=== PATIENT | male | born 1965 | race American Indian/Alaskan Native ===

== ENCOUNTER 2019-02-19 22:48 | Inpatient (IN) | payer OTHER ==
[2019-02-19] MEDS ORDERED: SODIUM CHLORIDE 0.9% 1000 ML 1,000 ML IV ONE (22:59)
[2019-02-19] MEDS ORDERED: MAGNESIUM SULFATE 2 GM/50 ML BAG IV ONE (23:00)
--- NOTE | 2019-02-19 23:05 | Emergency Department Report ---
HPI - General Time Seen by Provider: 02/19/19 22:57 - HPI HPI: 53-year-old -[place] male presents to the emergency department via EMS from home with a complaint of some chest pain, palpitations, diaphoresis that started about 1-2 hours prior to arrival. EMS found the patient to have runs of V. tach and after calling into the emergency department the patient was given 15 0 mg of amiodarone. He denies any past medical history. He denies any tobacco or illicit drug use. The patient recently saw his PCP for some bronchitis type symptoms and was placed on prednisone and Tessalon Perles for his cough. No recent travel or sick contacts at home. ED Review of Systems ROS: Stated complaint: CHEST PAIN Other details as noted in HPI Comment: All other systems reviewed and negative Constitutional: diaphoresis. denies: fever Eyes: denies: eye pain, vision change ENT: denies: ear pain, throat pain Respiratory: shortness of breath. denies: cough Cardiovascular: chest pain, palpitations Gastrointestinal: denies: abdominal pain, vomiting Musculoskeletal: denies: back pain, arthralgia Neurological: denies: headache, weakness Physical Exam - Physical Exam General: GENERAL: The patient is well-developed well-nourished. HENT: Normocephalic. Atraumatic. Patient has moist mucous membranes. EYES: Extraocular motions are intact. NECK: Supple. Trachea is midline. CHEST/LUNGS: Clear to auscultation. There is no respiratory distress noted. HEART/CARDIOVASCULAR: Regular. There is severe tachycardia. There is no murmur. ABDOMEN: Abdomen is soft, nontender. Patient has normal bowel sounds. There is no abdominal distention. SKIN: Patient is slightly diaphoretic. NEURO: The patient is awake, alert, and oriented. The patient is cooperative. The patient has no focal neurologic deficits. Normal speech. MUSCULOSKELETAL: There is no tenderness or deformity. There is no limitation range of motion. There is no evidence of acute injury. ED Course - Consultations Consultation #1: I spoke with Dr. Tiwari at [facility] who listened to the case presentation and has given us permission to admit the patient to our hospital. 02/20/19 01:32 ED Medical Decision Making - Lab Data Result diagrams: 02/19/19 23:07 02/19/19 23:07 - EKG Data -: EKG Interpreted by Me - EKG Data When compared to previous EKG there are: previous EKG unavailable Interpretation: other (V tach rate of 166, LVH) - Radiology Data Radiology results: report reviewed, image reviewed interpreted by me: Chest x-ray does not show any acute process. There are no pleural effusions, obvious pneumonia and there is no pneumothorax. CTA CHEST WITH CONTRAST INDICATION / CLINICAL INFORMATION: CP, elevated dimer. TECHNIQUE: Axial CT images were obtained through the chest after injection of 100 MLO Omnipaque 350 IV contrast. 3 plane MIP and/or 3D reconstructions were produced. All CT scans at this location are performed using CT dose reduction for ALARA by means of automated exposure control. COMPARISON: None available. FINDINGS: PULMONARY ARTERIES: No pulmonary emboli. THORACIC AORTA: No significant abnormality. HEART: Heart is mildly enlarged. No pericardial effusion. CORONARY ARTERIES: No significant calcification. MEDIASTINUM / JAEL: No significant abnormality. PLEURA: Small bilateral effusions. No pneumothorax. LUNGS: Interstitial and airspace pulmonary edema with peribronchial cuffing. ADDITIONAL FINDINGS: None. UPPER ABDOMEN: Tiny nonobstructing stone in the right kidney. No hydronephrosis. SKELETAL STRUCTURES: No significant osseous abnormality. IMPRESSION: 1. No CT evidence for pulmonary embolism. 2. Interstitial and airspace pulmonary edema with small bilateral pleural effusions. - Medical Decision Making This patient came into the emergency department with the complaint of some chest pain and palpitations. He was found to be in V. tach by EMS and given 150 mg of amiodarone in route. Upon arrival to the emergency department the patient still appears in V. tach with a heart rate going between 180 and 200 bpm. He was started on an amiodarone drip. Most of the EKG appears to show monomorphic V. tach but there was one area that appeared polymorphic and therefore some magnesium was added. The patient was also given some IV fluid resuscitation. The amiodarone drip, or the magnesium, appeared to start working and the heart rate slowed down and the patient went into a sinus rhythm. Chest x-ray appeared mostly unremarkable but was read by radiology as showing some signs of interstitial edema. Patient's labs show an equivocal troponin, an elevated d- dimer level, some transaminitis and a BNP greater than 5000. CT angiography of the chest was done that does not show any pulmonary embolism but does show some interstitial and airspace pulmonary edema with small bilateral pleural effusions. The patient's blood pressure is normal but does not appear to be high enough to start diuresis. Cardiology has been contacted and consult. The patient will be admitted to the telemetry floor and was accepted for admission by the hospitalist, Dr. Coronel. - Differential Diagnosis V. tach, TN, PE, CHF Critical Care Time: Yes Critical care time in (mins) excluding proc time.: 31 Critical care attestation.: If time is entered above; I have spent that time in minutes in the direct care of this critically ill patient, excluding procedure time. Critical care time was spent on this patient and doing his initial evaluation, multiple re- evaluations, ordering and interpretation of labs and imaging, ordering of antiarrhythmic medications, discussions with the patient and his family, discussion with the [facility] physician. Critical Care Time: 31 minutes ED Disposition Clinical Impression: Ventricular tachycardia, New onset of congestive heart failure, Acute chest pain, Transaminitis Disposition: 09 OP ADMIT IP TO THIS HOSP Is pt being admited?: Yes Condition: Serious Instructions: Chest Pain (ED) Referrals: PRIMARY CAREMD [Primary Care Provider] - 3-5 Days Time of Disposition: 01:33
[2019-02-19] MEDS ORDERED: AMIODARONE 150 MG in DEXTROSE 5% IN WATER 97 ML IV ONE (23:14)
[2019-02-19] MEDS: AMIODARONE 900 MG in DEXTROSE 5% IN WATER 482 ML IV SCH (23:20)
[2019-02-19 23:21] LABS: Basophils # (Auto) 0.1 K/mm3 (0.0-0.1); Basophils % (Auto) 0.7 % (0.0-1.8); Eosinophils # (Auto) 0.1 K/mm3 (0.0-0.4); Eosinophils % (Auto) 0.9 % (0.0-4.3); Hematocrit 42.1 % (35.5-45.6); Hemoglobin 14.3 gm/dl (11.8-15.2); Lymphocytes # (Auto) 1.4 K/mm3 (1.2-5.4); Lymphocytes % (Auto) 11.6 % (13.4-35.0); Mean Corpuscular HGB Conc 34 % (32-34); Mean Corpuscular Volume 89 fl (84-94); Monocytes # (Auto) 0.6 K/mm3 (0.0-0.8); Platelet Count 241 K/mm3 (140-440); Red Blood Count 4.72 M/mm3 (3.65-5.03); Red Cell Distribution Width 13.7 % (13.2-15.2)
[2019-02-19 23:40] LABS: Albumin 3.6 g/dL (3.9-5); BUN/Creatinine Ratio 19; Blood Urea Nitrogen 23 mg/dL (9-20); Calcium 8.9 mg/dL (8.4-10.2); Hemolysis Index 184
--- NOTE | 2019-02-19 23:46 | XRay Report ---
CHEST 1 VIEW 02/19/2019 11:08 PM INDICATION / CLINICAL INFORMATION: Chest pain. COMPARISON: None available. FINDINGS: SUPPORT DEVICES: None. HEART / MEDIASTINUM: Heart is upper normal size for AP portable technique. LUNGS / PLEURA: Borderline interstitial edema and peribronchial cuffing. No airspace disease or pleur al effusion. No pneumothorax. ADDITIONAL FINDINGS: No significant additional findings. IMPRESSION: 1. Borderline interstitial edema. Signer Name: Danny Stewart MD Signed: 02/19/2019 11:41 PM Workstation Name: [id number]
[2019-02-20 00:12] LABS: Alanine Aminotransferase 113 units/L (7-56)
--- NOTE | 2019-02-20 01:18 | Cat Scan Report ---
CTA CHEST WITH CONTRAST INDICATION / CLINICAL INFORMATION: CP, elevated dimer. TECHNIQUE: Axial CT images were obtained through the chest after injection of 100 MLO Omnipaque 350 IV contrast. 3 plane MIP and/or 3D reconstructions were produced. All CT scans at this location are performed usi ng CT dose reduction for JUNRA by means of automated exposure control. COMPARISON: None available. FINDINGS: PULMONARY ARTERIES: No pulmonary emboli. THORACIC AORTA: No significant abnormality. HEART: Heart is mildly enlarged. No pericardial effusion. CORONARY ARTERIES: No significant calcification. MEDIASTINUM / JAEL: No significant abnormality. PLEURA: Small bilateral effusions. No pneumothorax. LUNGS: Interstitial and airspace pulmonary edema with peribronchial cuffing. ADDITIONAL FINDINGS: None. UPPER ABDOMEN: Tiny nonobstructing stone in the right kidney. No hydronephrosis. SKELETAL STRUCTURES: No significant osseous abnormality. IMPRESSION: 1. No CT evidence for pulmonary embolism. 2. Interstitial and airspace pulmonary edema with small bilateral pleural effusions. Signer Name: Danny Stewart MD Signed: 02/20/2019 1:13 AM Workstation Name: [id number]
[2019-02-20] MEDS ORDERED: FUROSEMIDE 20 MG/2 ML INJ IV ONE ×3 (02:17→03:30)
[2019-02-20] MEDS ORDERED: guaiFENesin/CODEINE 100-10MG ORAL LIQD 5 ML PO ONE (02:18)
[2019-02-20] MEDS ORDERED: methylPREDNISolone Sod Succinate 125 MG/2 ML INJ IV ONE (02:27)
--- NOTE | 2019-02-20 02:32 | History and Physical Report ---
History of Present Illness Date of examination: 02/20/19 History of present illness: 53-year-old man with no medical problems comes emergency room with complaints of chest pain that started tonight. Pain is in the center of his status Whitty described as a sharp pain, constant, intensity 7/10, no radiation. Identify e xacerbating symptoms. Admits to shortness of breath. He was brought to the emergency room where he found to be in V. tach with heart rate in the 200s, he was given magnesium, started on amiodarone drip. When I saw the patient she was short of breath, diaphoretic and vomiting rate in the 160s, crackles on physical exam. He was given IV Lasix, Solu-Medrol. I placed a call to Dr. Dumont who recommended the patient to be cardioverted. While her getting ready to cardioverted the patient, his heart rate went down to the 80s Review Of Systems: Constitutional: no weight loss, fever, chills Ears, eyes, nose, mouth and throat: no nasal congestion, no nasal discharge, no sinus pressure, blurry vision, diplopia Neck: No neck pain or rigidity. Cardiovascular:+ palpitations, chest pain Respiratory: + shortness of breath, cough productive of white phlegm Gastrointestinal: No hematochezia, abdominal pain Genitourinary : no dysuria, frequency Musculoskeletal: no muscle ache , joint pain Integumentary: no rash, no pruritis Neurological: no parathesias, focal weakness Endocrine: no cold or heat intolerance, no polyuria or polydipsia Hematologic/Lymphatic: no easy bruising, no easy bleeding, no gland swelling Allergic/Immunologic: no urticaria, no angioedema. PAST MEDICAL HISTORY:None PAST SURGICAL HISTORY: hernia FAMILY HISTORY:hypertension, diabetes SOCIAL HISTORY: Denies tobacco, drugs, alcohol Medications and Allergies Allergies Allergy/AdvReac Type Severity Reaction Status Date / Time No Known Allergies Allergy Unverified 02/19/19 22:57 Active Meds: Active Medications Amiodarone HCl 900 mg/ (Dextrose) 500 mls @ 33.333 mls/hr IV DIRECT ERNIE; Protocol Last Admin: 02/19/19 23:20 Dose: 1 mg/min, 33.333 mls/hr Documented by: Pseudoephedrine/Acetam/Chlorphenir (Robitussin Ac) 5 ml PO ONCE ONE Stop: 02/20/19 02:19 Exam - Physical Exam Narrative exam: General Apperance: The patient sitting in bed , short of breath HEENT: Normocephalic, atraumatic. Pupils equally round and reactive to light, extraocular movement intact, and no sclericterus or JVD or thyromegaly or nodule. Neck supple, no carotid bruit, mucous membranes moist, no exudate or erythema Heart: S1-S2, regular is rhythm Lungs: Crackles, decrease breath sounds bilaterally, breathing comfortable Abdomen: Positive bowel sounds, soft, nontender, nondistended, no organomegaly Extremities: No edema cyanosis clubbing Skin: no rash, nodule, warm and dry Neuro:CN 2 -12 intact, motor/sensory intact, speech is fluent - Constitutional Vitals: Temp Pulse Resp BP Pulse Ox 98.1 F 186 H 18 105/81 100 02/19/19 22:59 02/19/19 23:20 02/19/19 23:27 02/19/19 23:20 02/19/19 23:27 Results - Labs CBC & Chem 7: 02/19/19 23:07 02/19/19 23:07 Labs: Abnormal lab results 02/19/19 02/19/19 02/19/19 Range/Units 23:07 23:07 23:07 WBC 12.2 H (4.5-11.0) K/mm3 Lymph % (Auto) 11.6 L (13.4-35.0) % Seg Neutrophils % 81.8 H (40.0-70.0) % Seg Neutrophils # 10.0 H (1.8-7.7) K/mm3 D-Dimer 525.92 H (0-234) ng/mlDDU Potassium 5.1 H (3.6-5.0) mmol/L Carbon Dioxide 21 L (22-30) mmol/L BUN 23 H (9-20) mg/dL Glucose 137 H (75-100) mg/dL AST 121 H (5-40) units/L ALT 113 H (7-56) units/L NT-Pro-B Natriuret Pep (0-900) pg/mL Albumin 3.6 L (3.9-5) g/dL TSH (0.270-4.200) mlU/mL 02/19/19 02/19/19 Range/Units 23:07 23:07 WBC (4.5-11.0) K/mm3 Lymph % (Auto) (13.4-35.0) % Seg Neutrophils % (40.0-70.0) % Seg Neutrophils # (1.8-7.7) K/mm3 D-Dimer (0-234) ng/mlDDU Potassium (3.6-5.0) mmol/L Carbon Dioxide (22-30) mmol/L BUN (9-20) mg/dL Glucose (75-100) mg/dL AST (5-40) units/L ALT (7-56) units/L NT-Pro-B Natriuret Pep 5554 H (0-900) pg/mL Albumin (3.9-5) g/dL TSH 5.020 H (0.270-4.200) mlU/mL - Imaging and Cardiology EKG: image reviewed Chest x-ray: report reviewed CT scan - chest: report reviewed Assessment and Plan Assessment V. tach new-onset CHF, new onset secondary to V. tach Plan Admit to medicine Continue amiodarone drip Cardiac enzymes, echo, t4 For cardiology, case discussed with Dr. Ross. DVT prophylaxis Addendum Patient heart rate went back to 160s, became very diaphoretic, short of breath Was given a bolus of amiodarone drip and his heart rate went down to 80s I gave them an extra dose of 20 mg of Lasix as his blood pressure is in the low 120s Ernst was placed, is anxious appearing and not tolerating 50% Ventimask ABG was obtained, results reviewed, pH 7.1, he was placed on BiPAP Consult critical care, repeat EKGs were obtained and sent to cardiology DrLashell a lot to delay was updated on all events concerning the patient Discussed with family CC 120 minutes
[2019-02-20] MEDS ORDERED: ACETAMINOPHEN 325 MG TAB PO PRN (03:07)
[2019-02-20] MEDS ORDERED: ONDANSETRON 4 MG/2 ML INJ IV PRN (03:07)
[2019-02-20] MEDS ORDERED: AMIODARONE 150 MG/3 ML INJ IV ONE ×2 (03:18→03:29)
[2019-02-20] MEDS ORDERED: AMIODARONE 150 MG in DEXTROSE 5% IN WATER 100 ML IV ONE ×3 (03:18→03:26)
[2019-02-20] MEDS ORDERED: LORazepam 2 MG/ML VIAL IV ONE ×2 (03:36→04:35)
[2019-02-20] MEDS ORDERED: LORazepam 2 MG/ML VIAL ONE ×2 (03:36→05:27)
[2019-02-20] MEDS ORDERED: FUROSEMIDE 20 MG/2 ML INJ ONE (05:28)
[2019-02-20 07:23] LABS: Creatine Kinase MB 7.4 ng/mL (0.0-4.0)
[2019-02-20 07:48] LABS: Chol/HDL Ratio 3.04 %
--- NOTE | 2019-02-20 09:32 | Consultation ---
History of Present Illness Consult date: 02/20/19 Requesting physician: JULIA PANDA Consult reason: other (VT) History of present illness: The pt is a 53-year-old -[place] with no significant past medical history. He is previously unknown to our practice. He presented to the emergency department via EMS from home with a complaint of some chest pain, palpitations, diaphoresis that started about 1-2 hours prior to arrival (started around 8:30PM last night). EMS found the patient to have runs of V. tach and after calling into the emergency department the patient was given 150 mg of amiodarone. He denies any past medical history. He denies any tobacco or illicit drug use. The patient recently saw his PCP for some bronchitis type symptoms and was placed on prednisone and Tessalon Perles for his cough. 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 Following arrival to ED, pt had additional run of VT documented on 12-lead ECG. IV amio was continued and he converted back to NSR. He was noted to have increased work of breathing and increased coarse breath sounds in ED and was given IV lasix and placed on BiPAP. On evaluation, BiPAP was transitioned to nasal cannula. Pt appears comfortable, no apparent distress, no current cardiac complaints. He remains in NSR with freq PVCs, amio gtt infusing. Past History Past Medical History: No medical history Past Surgical History: hernia repair Medications and Allergies Allergies Allergy/AdvReac Type Severity Reaction Status Date / Time No Known Allergies Allergy Unverified 02/19/19 22:57 Active Meds: Active Medications Acetaminophen (Tylenol) 650 mg PO Q4H PRN PRN Reason: Pain MILD(1-3)/Fever >100.5/FINE Amiodarone HCl 900 mg/ (Dextrose) 500 mls @ 33.333 mls/hr IV DIRECT ERNIE; Protocol Last Titration: 02/20/19 07:34 Dose: 0.5 mg/min, 16.667 mls/hr Documented by: Sodium Chloride (Nacl 0.9% 500 Ml) 500 mls @ 50 mls/hr IV DIRECT ERNIE Stop: 02/20/19 19:59 Ondansetron HCl (Zofran) 4 mg IV Q8H PRN PRN Reason: Nausea And Vomiting Sodium Chloride (Sodium Chloride Flush Syringe 10 Ml) 10 ml IV BID ERNIE Sodium Chloride (Sodium Chloride Flush Syringe 10 Ml) 10 ml IV PRN PRN PRN Reason: LINE FLUSH Review of Systems Constitutional: no weight loss, no weight gain, no fever, no chills, no sweats Ears, nose, mouth and throat: no ear pain, no nose pain Cardiovascular: chest pain, palpitations, rapid/irregular heart beat, shortness of breath, no orthopnea, no edema, no syncope, no lightheadedness, no high blood pressure, no leg edema, no decreased exercise tolerance Respiratory: shortness of breath, no cough, no congestion, no wheezing, no pain on inspiration Gastrointestinal: no abdominal pain, no nausea, no vomiting, no diarrhea, no constipation, no change in bowel habits Genitourinary Male: no dysuria, no hematuria, no flank pain, no discharge, no urinary frequency, no urinary hesitancy Musculoskeletal: no neck stiffness, no neck pain, no shooting arm pain, no arm numbness/tingling, no low back pain, no shooting leg pain Integumentary: no rash, no pruritis, no redness, no sores, no wounds Neurological: no head injury, no paralysis, no weakness, no parathesias, no numbness, no tingling, no seizures, no syncope Psychiatric: no anxiety Endocrine: no cold intolerance, no heat intolerance Hematologic/Lymphatic: no easy bruising, no easy bleeding Allergic/Immunologic: no urticaria, no wheezing Physical Examination Vital Signs Pulse Resp Pulse Ox 85 15 100 02/19/19 19:54 02/19/19 19:54 02/19/19 19:54 General appearance: no acute distress HEENT: Positive: PERRL, Normocephaly, Mucus Membranes Moist Neck: Positive: neck supple, trachea midline Cardiac: Positive: Reg Rate and Rhythm, S1/S2 Lungs: Positive: Rales (bibasilar) Neuro: Positive: Grossly Intact Abdomen: Negative: Tender Skin: Negative: Rash Musculoskeletal: No Pain Extremities: Absent: edema Results 02/19/19 23:07 02/19/19 23:07 Cardiac Enzymes 02/19/19 02/20/19 Range/Units 23:07 06:44 AST 121 H (5-40) units/L CK-MB (CK-2) 7.4 H (0.0-4.0) ng/mL Lipids 02/20/19 Range/Units 06:44 Triglycerides 104 (2-149) mg/dL Cholesterol 225 H (50-199) mg/dL HDL Cholesterol 74 H (40-59) mg/dL Cholesterol/HDL Ratio 3.04 % CBC 02/19/19 Range/Units 23:07 WBC 12.2 H (4.5-11.0) K/mm3 RBC 4.72 (3.65-5.03) M/mm3 Hgb 14.3 (11.8-15.2) gm/dl Hct 42.1 (35.5-45.6) % Plt Count 241 (140-440) K/mm3 Lymph # 1.4 (1.2-5.4) K/mm3 [place] # 0.6 (0.0-0.8) K/mm3 Eos # 0.1 (0.0-0.4) K/mm3 Baso # 0.1 (0.0-0.1) K/mm3 Comprehensive Metabolic Panel 02/19/19 Range/Units 23:07 Sodium 137 (137-145) mmol/L Potassium 5.1 H (3.6-5.0) mmol/L Chloride 103.7 (98-107) mmol/L Carbon Dioxide 21 L (22-30) mmol/L BUN 23 H (9-20) mg/dL Creatinine 1.2 (0.8-1.5) mg/dL Glucose 137 H (75-100) mg/dL Calcium 8.9 (8.4-10.2) mg/dL AST 121 H (5-40) units/L ALT 113 H (7-56) units/L Alkaline Phosphatase 74 (35-129) units/L Total Protein 7.1 (6.3-8.2) g/dL Albumin 3.6 L (3.9-5) g/dL - Imaging and Cardiology Echo: pending EKG: report reviewed, image reviewed EKG interpretations - Telemetry EKG Rhythm: Sinus Rhythm - EKG Sinus rhythms and dysrhythmias: sinus rhythm Ventricular dysrhythmias: ventricular premature com Assessment and Plan Coronary angiography recommended to r/o ischemic event in setting of VT. Indications, potential risks and benefits of LHC reviewed with pt and he is agreeable to proceed. Await findings. Obtain echo. Further recs to follow per hospital course. The patient has been seen in conjunction with Dr. Alford who agrees with the assessment and plan of care. - Patient Problems (1) Ventricular tachycardia Current Visit: Yes Status: Acute (2) Acute heart failure Current Visit: Yes Status: Acute (3) Chest pain Current Visit: Yes Status: Acute
[2019-02-20] MEDS ORDERED: SODIUM CHLORIDE 0.9% 500 ML 500 ML IV SCH (10:00)
[2019-02-20] MEDS ORDERED: HEPARIN/NS 5000 UNIT/500ML 1,000 ML IR ONE ×2 (10:04→11:03)
[2019-02-20] MEDS ORDERED: HEPARIN 10,000 UNITS/10 ML VIAL ONE ×2 (10:04→11:03)
[2019-02-20] MEDS ORDERED: fentaNYL 100 MCG/2 ML INJ ONE ×2 (10:05→11:04)
[2019-02-20] MEDS ORDERED: NITROGLYCERIN SYRINGE 0 ML ONE ×2 (10:05→11:04)
[2019-02-20] MEDS ORDERED: LIDOCAINE (2%) 20 MG/1 ML VIAL 20 ML MDV INFILTRATI ONE ×2 (10:05→11:04)
[2019-02-20] MEDS ORDERED: VERAPAMIL 5 MG/2 ML INJ ONE ×2 (10:05→11:04)
[2019-02-20] MEDS ORDERED: MIDAZOLAM 2 MG/2 ML INJ ONE ×2 (10:05→11:03)
[2019-02-20] MEDS ORDERED: SODIUM CHLORIDE 0.9% 500 ML 0 ML ONE (10:22)
[2019-02-20 10:48] LABS: INR 1.13 (0.87-1.13); Partial Thromboplastin Time 28.5 Sec. (24.2-36.6)
[2019-02-20] MEDS ORDERED: SODIUM CHLORIDE 0.9% 500 ML 500 ML ONE (11:04)
[2019-02-20] MEDS ORDERED: ASPIRIN EC 325 MG TAB PO ONE (11:30)
--- NOTE | 2019-02-20 12:27 | Event Note ---
Date: 02/20/19 S/p LHC via RRA which showed mild nonobstructive CAD, EF 10-15%, elevated LVEDP. Will initiate ASA, statin, IV diuretics and GDMT as tolerated. Pt has a recent diagnosis of bronchitis and reports exercise intolerance for the past 1-2 weeks. This could be viral myocarditis. Will continue IV amiodarone and obtain EP consultation for possible AICD implantation. Pt may tx from CCU to telemetry from cardiology standpoint. Further recs to follow per hospital course. Yas MAO NP / DR. GARBER
--- NOTE | 2019-02-20 12:33 | Event Note ---
Date: 02/20/19 patient admitted earlier this morning for Vtach and acute systolic CHF. Patient is stable for transfer to the floor.
--- NOTE | 2019-02-20 12:39 | Cardiac Catherization Report ---
DATE OF PROCEDURE: 02/20/2019 INDICATION FOR PROCEDURE: The patient is a 53-year-old -[place] gentleman with complaints of shortness of breath of few weeks' duration, presented to the Emergency Room with ventricular tachycardia. Hence, he was scheduled for cardiac catheterization for definitive diagnosis and treatment. The patient denies any complaints of chest pain. His main complaint is decreased exercise tolerance. DESCRIPTION OF PROCEDURE: The patient was brought to the catheterization laboratory in a fasting condition. The patient was evaluated for moderate sedation and was found to be appropriate candidate for the same. The patient received IV Versed and fentanyl as sedatives and analgesics. Right wrist area and forearm were thoroughly cleansed with Betadine solution. Sterile drapes were applied. Local anesthesia was given in the right wrist area. Right radial artery puncture was made using 21-gauge arterial puncture needle. Subsequently, 5-St Helenian slender sheath was used. A 5-St Helenian multipurpose catheter was used to obtain the left ventriculogram done in PALMER projection using hand injection. Using the same catheter, right coronary angiography was performed. This catheter was exchanged with 5-St Helenian TIG catheter for getting the angiograms of the left coronary artery in multiple views. At the end of the procedure, catheter and sheath were removed. The patient tolerated the procedure well. No untoward complications were noted. The patient was monitored throughout the procedure for any side effects from moderate sedation. The patient was monitored with pulse oximetry, EKG and hemodynamic monitoring. The patient's moderate sedation started at 11:30 and ended at 11:45 a.m. At the end of the procedure, the patient is alert, oriented x 3, breathing normally and moving all the extremities without any focal deficits. Following findings were noted. HEMODYNAMICS: 1. Opening aortic pressure 117/89. Left ventricular pressure 117/34. No gradient across the aortic valve. Estimated ejection fraction 10%-15%. 2. Left ventriculogram done in PALMER projection using hand injection showed moderately dilated left ventricle with severe diffuse hypokinesis. End-diastolic pressure was elevated up to 34-40 mmHg. Ejection fraction was felt to be 10%-15%. Mitral regurgitation could not be evaluated because of limited amount of dye. 3. Right coronary artery dominant vessel arises normally from right coronary cusp, only very mild smooth irregularities were noted. 4. Left coronary artery arises normally from left coronary cusp. Left main is smooth and normal. LAD and its branches and circumflex artery and its branches are almost angiographically smooth and normal with only very minimal irregularities. Collaterals none. FINAL IMPRESSION: Moderately dilated left ventricle with severe diffuse hypokinesis, ejection fraction 10%-15%. Only minimal coronary disease noted. At this time, the patient appears to have dilated cardiomyopathy, etiology not clear. However, the patient does admit to having acute bronchitis few weeks ago. The patient will be monitored in CCU. Appropriate medical therapy will be started. No untoward complications were noted from the procedure. Findings were explained to the patient. He understands. JOB# [id number] GABBY/DONAVAN LISA
[2019-02-20] MEDS: FUROSEMIDE 40 MG/4 ML INJ IV SCH (16:15)
--- NOTE | 2019-02-20 20:32 | Event Note ---
Date: 02/20/19 53-year-old male presents with sustained VT and acute HFrEF 10-15%. A left heart catheterization today revealed no angiographically significant CAD with an elevated LVEDP of 34-40 mmHg. An echocardiogram revealed an EF of 10-15% with mild LVH and mild to moderate mitral regurgitation. The patient reports that for the last week and a half he's had increasing shortness of breath with associated paroxysmal nocturnal dyspnea. He also was complaining of a nonproductive cough. The patient denies any alcohol or IV drug use. A CT of the chest on admission was negative for pulmonary embolism revealed bilateral pleural effusions with pulmonary edema. His TSH level was mildly elevated. The patient reports he has a mother who has a history of heart failure. He also reports that he's been taking an amino acid supplement to increase his muscle mass. He is unclear of the name his states that she will bring in the medication. Sustained ventricular tachycardia Recurrent salvos of VT Acute HFrEF 10-15% Elevated LVEDP New cardiomyopathy This evening I had a lengthy discussion with the patient, his , and his son. He was not aware that he had advanced heart failure. Discussed in detail the risk and benefits of a subcutaneous ICD and a transvenous ICD. Plan to give the patient some educational materials tomorrow regarding the procedure. Recommend continuing heart failure medication regimen and aggressive diuresis. Recommend titrating the beta loly. Telemetry monitoring reveals the patient continues to have recurrent salvos of ventricular tachycardia. Recommend continue to monitor closely on telemetry and monitor his electrolytes. Patient has been instructed to not take any of his dietary supplements.
[2019-02-20] MEDS: carvediloL 6.25 MG TAB PO SCH (23:07)
[2019-02-20] MEDS: AMIODARONE 900 MG in DEXTROSE 5% IN WATER 482 ML IV SCH (23:09)
[2019-02-21 04:29] LABS: Basophils % (Auto) 0.1 % (0.0-1.8); Eosinophils % (Auto) 0.1 % (0.0-4.3); Hematocrit 41.8 % (35.5-45.6); Hemoglobin 13.9 gm/dl (11.8-15.2); Lymphocytes # (Auto) 1.1 K/mm3 (1.2-5.4); Lymphocytes % (Auto) 7.6 % (13.4-35.0); Mean Corpuscular HGB Conc 33 % (32-34); Mean Corpuscular Volume 89 fl (84-94); Monocytes # (Auto) 1.5 K/mm3 (0.0-0.8); Monocytes % (Auto) 10.7 % (0.0-7.3); Platelet Count 208 K/mm3 (140-440); Red Blood Count 4.69 M/mm3 (3.65-5.03)
[2019-02-21 04:43] LABS: BUN/Creatinine Ratio 24; Blood Urea Nitrogen 31 mg/dL (9-20); Calcium 8.4 mg/dL (8.4-10.2); Hemolysis Index 17
[2019-02-21] MEDS: FUROSEMIDE 40 MG/4 ML INJ IV SCH ×2 (09:50→17:31)
[2019-02-21] MEDS: LISINOPRIL 5 MG TAB PO SCH (09:50)
[2019-02-21] MEDS: carvediloL 6.25 MG TAB PO SCH ×2 (09:51→21:39)
[2019-02-21] MEDS: ASPIRIN 81 MG TAB CHEW PO SCH (09:52)
--- NOTE | 2019-02-21 12:45 | Progress Note ---
Assessment and Plan Echo reviewed - EF 10-15%, mild LVH, RV mildly dilated, grade 2 diastolic dysfunction, mild to mod MR, mild TR, left pleural effusion present. EP consultation noted. Cont amio gtt, IV diuresis and GDMT as tolerated. Pt for possible AICD implantation next week. The patient has been seen in conjunction with Dr. Alford who agrees with the a ssessment and plan of care. - Patient Problems (1) Ventricular tachycardia Current Visit: Yes Status: Acute (2) Acute HFrEF (heart failure with reduced ejection fraction) Current Visit: Yes Status: Acute (3) Nonischemic cardiomyopathy Current Visit: Yes Status: Acute (4) Chest pain Current Visit: Yes Status: Resolved (5) Nonobstructive atherosclerosis of coronary artery Current Visit: Yes Status: Chronic (6) Hyperlipidemia Current Visit: Yes Status: Chronic Subjective Date of service: 02/21/19 Principal diagnosis: HF; CMP; VT Interval history: pt resting up at bedside, no current complaints. states he is feeling better today. amio gtt infusing. tele reviewed - in SR with bouts of NSVT noted overnight, longest run was 21 beats. Objective Last Vital Signs Temp 98.2 F 02/21/19 11:05 Pulse 66 02/21/19 11:05 Resp 18 02/21/19 11:05 BP 119/72 02/21/19 11:05 Pulse Ox 100 02/21/19 11:05 - Physical Examination General: No Apparent Distress HEENT: Positive: PERRL, Normocephaly, Mucus Membranes Moist Neck: Positive: neck supple, trachea midline Cardiac: Positive: Reg Rate and Rhythm, S1/S2 Lungs: Positive: Decreased Breath Sounds Neuro: Positive: Grossly Intact Abdomen: Negative: Tender Skin: Negative: Rash Musculoskeletal: No Pain Extremities: Absent: edema - Labs and Meds CBC 02/21/19 Range/Units 03:43 WBC 14.1 H (4.5-11.0) K/mm3 RBC 4.69 (3.65-5.03) M/mm3 Hgb 13.9 (11.8-15.2) gm/dl Hct 41.8 (35.5-45.6) % Plt Count 208 (140-440) K/mm3 Lymph # 1.1 L (1.2-5.4) K/mm3 [place] # 1.5 H (0.0-0.8) K/mm3 Eos # 0.0 (0.0-0.4) K/mm3 Baso # 0.0 (0.0-0.1) K/mm3 Comprehensive Metabolic Panel 02/21/19 Range/Units 03:43 Sodium 138 (137-145) mmol/L Potassium 4.8 (3.6-5.0) mmol/L Chloride 103.1 (98-107) mmol/L Carbon Dioxide 22 (22-30) mmol/L BUN 31 H (9-20) mg/dL Creatinine 1.3 (0.8-1.5) mg/dL Glucose 128 H (75-100) mg/dL Calcium 8.4 (8.4-10.2) mg/dL - Imaging and Cardiology EKG: report reviewed, image reviewed Echo: report reviewed ( EF 10-15%, mild LVH, RV mildly dilated, grade 2 diastolic dysfunction, mild to mod MR, mild TR, left pleural effusion present. ) Cardiac cath: report reviewed (mild nonobstructive CAD, EF 10-15%, elevated LVEDP. ) - Telemetry EKG Rhythm: Sinus Rhythm - EKG Sinus rhythms and dysrhythmias: sinus rhythm Ventricular dysrhythmias: ventricular premature com
--- NOTE | 2019-02-21 14:51 | Progress Note ---
Assessment and Plan Assessment and plan: (1) Ventricular tachycardia - Patient is on an amiodarone drip and carvedilol - Pending EP evaluations (2) Acute HFrEF (heart failure with reduced ejection fraction) - Patient is on appropriate CHF medications - cardiology consult appreciated (3) Nonischemic cardiomyopathy -as outlined above (4) Chest pain - Resolved (5) Nonobstructive atherosclerosis of coronary artery - continue current medication regimens (6) Hyperlipidemia - On statin DVT prophylaxis - Lovenox Disposition - Per cardiology History Interval history: Patient was seen and evaluated this morning , patient denied any palpitation or chest pain. Hospitalist Physical - Physical exam Narrative exam: Not in cardiopulmonary distress. The patient appeared well nourished and normally developed. Vital signs as documented. Head exam is unremarkable. No scleral icterus . Neck is without jugular venous distension, thyromegaly, or carotid bruits. Lungs are clear to auscultation. Cardiac exam reveals regular rate and Rhythm. Abdominal exam reveals normal bowel sounds, nontender, no organomegaly. Extremities are nonedematous and both femoral and pedal pulses are normal. 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 - Constitutional Vitals: Temp Pulse Resp BP Pulse Ox 98.2 F 66 18 119/72 100 02/21/19 11:05 02/21/19 11:05 02/21/19 11:05 02/21/19 11:05 02/21/19 11:05 General appearance: Present: no acute distress Results - Labs CBC & Chem 7: 02/21/19 03:43 02/21/19 03:43 Labs: Laboratory Last Values WBC 14.1 K/mm3 (4.5-11.0) H 02/21/19 03:43 RBC 4.69 M/mm3 (3.65-5.03) 02/21/19 03:43 Hgb 13.9 gm/dl (11.8-15.2) 02/21/19 03:43 Hct 41.8 % (35.5-45.6) 02/21/19 03:43 MCV 89 fl (84-94) 02/21/19 03:43 MCH 30 pg (28-32) 02/21/19 03:43 MCHC 33 % (32-34) 02/21/19 03:43 RDW 14.0 % (13.2-15.2) 02/21/19 03:43 Plt Count 208 K/mm3 (140-440) 02/21/19 03:43 Lymph % (Auto) 7.6 % (13.4-35.0) L 02/21/19 03:43 [place] % (Auto) 10.7 % (0.0-7.3) H 02/21/19 03:43 Eos % (Auto) 0.1 % (0.0-4.3) 02/21/19 03:43 Baso % (Auto) 0.1 % (0.0-1.8) 02/21/19 03:43 Lymph # 1.1 K/mm3 (1.2-5.4) L 02/21/19 03:43 [place] # 1.5 K/mm3 (0.0-0.8) H 02/21/19 03:43 Eos # 0.0 K/mm3 (0.0-0.4) 02/21/19 03:43 Baso # 0.0 K/mm3 (0.0-0.1) 02/21/19 03:43 Seg Neutrophils % 81.5 % (40.0-70.0) H 02/21/19 03:43 Seg Neutrophils # 11.5 K/mm3 (1.8-7.7) H 02/21/19 03:43 PT 14.4 Sec. (12.2-14.9) 02/20/19 10:08 INR 1.13 (0.87-1.13) 02/20/19 10:08 APTT 28.5 Sec. (24.2-36.6) 02/20/19 10:08 D-Dimer 525.92 ng/mlDDU (0-234) H 02/19/19 23:07 POC ABG pH 7.229 (7.35-7.45) L 02/20/19 05:15 POC ABG pCO2 42.9 (35-45) 02/20/19 05:15 POC ABG pO2 101 (80-105) 02/20/19 05:15 POC ABG HCO3 17.9 (22-26 mml/L) 02/20/19 05:15 POC ABG Total CO2 19 (23-27mmol/L) 02/20/19 05:15 POC ABG O2 Sat 96 02/20/19 05:15 POC ABG Base Excess -10 ((-2) - (+3)mmol/L) 02/20/19 05:15 FiO2 50 % 02/20/19 05:15 Sodium 138 mmol/L (137-145) 02/21/19 03:43 Potassium 4.8 mmol/L (3.6-5.0) 02/21/19 03:43 Chloride 103.1 mmol/L (98-107) 02/21/19 03:43 Carbon Dioxide 22 mmol/L (22-30) 02/21/19 03:43 Anion Gap 18 mmol/L 02/21/19 03:43 BUN 31 mg/dL (9-20) H 02/21/19 03:43 Creatinine 1.3 mg/dL (0.8-1.5) 02/21/19 03:43 Estimated GFR > 60 ml/min 02/21/19 03:43 BUN/Creatinine Ratio 24 % 02/21/19 03:43 Glucose 128 mg/dL (75-100) H 02/21/19 03:43 POC Glucose 131 (70-105) H 02/20/19 16:42 Calcium 8.4 mg/dL (8.4-10.2) 02/21/19 03:43 Phosphorus 5.80 mg/dL (2.5-4.5) H 02/20/19 06:44 Magnesium 2.30 mg/dL (1.7-2.3) 02/20/19 06:44 Total Bilirubin 0.50 mg/dL (0.1-1.2) 02/19/19 23:07 AST 121 units/L (5-40) H 02/19/19 23:07 ALT 113 units/L (7-56) H 02/19/19 23:07 Alkaline Phosphatase 74 units/L (35-129) 02/19/19 23:07 Total Creatine Kinase 484 units/L (55-170) H 02/20/19 06:44 CK-MB (CK-2) 7.4 ng/mL (0.0-4.0) H 02/20/19 06:44 CK-MB (CK-2) Rel Index 1.5 (0-4) 02/20/19 06:44 Troponin T 0.031 ng/mL (0.00-0.029) H D 02/20/19 06:44 NT-Pro-B Natriuret Pep 5554 pg/mL (0-900) H 02/19/19 23:07 Total Protein 7.1 g/dL (6.3-8.2) 02/19/19 23:07 Albumin 3.6 g/dL (3.9-5) L 02/19/19 23:07 Albumin/Globulin Ratio 1.0 % 02/19/19 23:07 Triglycerides 104 mg/dL (2-149) 02/20/19 06:44 Cholesterol 225 mg/dL (50-199) H 02/20/19 06:44 LDL Cholesterol Direct 148 mg/dL (50-130) H 02/20/19 06:44 HDL Cholesterol 74 mg/dL (40-59) H 02/20/19 06:44 Cholesterol/HDL Ratio 3.04 % 02/20/19 06:44 TSH 5.020 mlU/mL (0.270-4.200) H 02/19/19 23:07 Thyroxine (T4) 8.5 ug/dL (4.0-12.0) 02/20/19 06:44 Active Medications - Current Medications Current Medications: Generic Name Dose Route Start Last Admin Trade Name Freq PRN Reason Stop Dose Admin Acetaminophen 650 mg 02/20/19 03:07 Tylenol PO Q4H PRN Pain MILD(1-3)/Fever >100.5/FINE Aspirin 81 mg 02/21/19 10:00 02/21/19 09:52 Baby Aspirin PO 81 mg QDAY ERNIE Administration Atorvastatin Calcium 40 mg 02/20/19 22:00 02/20/19 23:07 Lipitor PO 40 mg QHS ERNIE Administration Carvedilol 6.25 mg 02/20/19 22:00 02/21/19 09:51 Coreg PO 6.25 mg BID ERNIE Administration Furosemide 40 mg 02/21/19 18:00 Lasix IV 0600,1800 ERNIE Amiodarone HCl 900 mg/ 500 mls @ 33.333 mls/hr 02/19/19 23:00 02/20/19 23:09 Dextrose IV 0.5 mg/min DIRECT ERNIE 16.667 mls/hr Administration Protocol 1 MG/MIN Lisinopril 5 mg 02/21/19 10:00 02/21/19 09:50 Zestril PO 5 mg QDAY ERNIE Administration Ondansetron HCl 4 mg 02/20/19 03:07 Zofran IV Q8H PRN Nausea And Vomiting Sodium Chloride 10 ml 02/20/19 10:00 02/21/19 09:52 Sodium Chloride Flush Syringe 10 Ml IV 10 ml BID ERNIE Administration Sodium Chloride 10 ml 02/20/19 03:07 Sodium Chloride Flush Syringe 10 Ml IV PRN PRN LINE FLUSH
[2019-02-21] MEDS ORDERED: AMIODARONE 75 MG in DEXTROSE 5% IN WATER 97 ML IV ONE (17:35)
[2019-02-21] MEDS: AMIODARONE 900 MG in DEXTROSE 5% IN WATER 482 ML IV SCH (21:21)
[2019-02-21] MEDS: ENOXAPARIN 40 MG/0.4 ML INJ SUB-Q SCH (21:47)
[2019-02-22 05:06] LABS: BUN/Creatinine Ratio 22; Blood Urea Nitrogen 26 mg/dL (9-20); Calcium 8.3 mg/dL (8.4-10.2); Hemolysis Index 103
[2019-02-22] MEDS: FUROSEMIDE 40 MG/4 ML INJ IV SCH ×2 (06:21→19:21)
--- NOTE | 2019-02-22 09:12 | Progress Note ---
Assessment and Plan Assessment and plan: (1) Ventricular tachycardia - Patient is on an amiodarone drip and carvedilol - Patient had run of v-tach overnight - Pending EP evaluations (2) Acute HFrEF (heart failure with reduced ejection fraction) - Patient is on appropriate CHF medications - cardiology consult appreciated (3) Nonischemic cardiomyopathy -as outlined above (4) Chest pain - Resolved (5) Nonobstructive atherosclerosis of coronary artery - continue current medication regimens (6) Hyperlipidemia - On statin DVT prophylaxis - Lovenox Disposition - Per cardiology History Interval history: Patient was seen and evaluated this morning , patient denied any palpitation or chest pain. patient had runs of V-tach overnight. Hospitalist Physical - Physical exam Narrative exam: Not in cardiopulmonary distress. The patient appeared well nourished and normally developed. Vital signs as documented. Head exam is unremarkable. No scleral icterus . Neck is without jugular venous distension, thyromegaly, or carotid bruits. Lungs are clear to auscultation. Cardiac exam reveals regular rate and Rhythm. Abdominal exam reveals normal bowel sounds, nontender, no organomegaly. Extremities are nonedematous and both femoral and pedal pulses are normal. 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 - Constitutional Vitals: Temp Pulse Resp BP Pulse Ox 97.4 F L 70 18 111/78 99 02/22/19 08:23 02/22/19 08:23 02/22/19 08:23 02/22/19 08:23 02/22/19 08:45 General appearance: Present: no acute distress Results - Labs CBC & Chem 7: 02/21/19 03:43 02/22/19 04:11 Labs: Laboratory Last Values WBC 14.1 K/mm3 (4.5-11.0) H 02/21/19 03:43 RBC 4.69 M/mm3 (3.65-5.03) 02/21/19 03:43 Hgb 13.9 gm/dl (11.8-15.2) 02/21/19 03:43 Hct 41.8 % (35.5-45.6) 02/21/19 03:43 MCV 89 fl (84-94) 02/21/19 03:43 MCH 30 pg (28-32) 02/21/19 03:43 MCHC 33 % (32-34) 02/21/19 03:43 RDW 14.0 % (13.2-15.2) 02/21/19 03:43 Plt Count 208 K/mm3 (140-440) 02/21/19 03:43 Lymph % (Auto) 7.6 % (13.4-35.0) L 02/21/19 03:43 [place] % (Auto) 10.7 % (0.0-7.3) H 02/21/19 03:43 Eos % (Auto) 0.1 % (0.0-4.3) 02/21/19 03:43 Baso % (Auto) 0.1 % (0.0-1.8) 02/21/19 03:43 Lymph # 1.1 K/mm3 (1.2-5.4) L 02/21/19 03:43 [place] # 1.5 K/mm3 (0.0-0.8) H 02/21/19 03:43 Eos # 0.0 K/mm3 (0.0-0.4) 02/21/19 03:43 Baso # 0.0 K/mm3 (0.0-0.1) 02/21/19 03:43 Seg Neutrophils % 81.5 % (40.0-70.0) H 02/21/19 03:43 Seg Neutrophils # 11.5 K/mm3 (1.8-7.7) H 02/21/19 03:43 PT 14.4 Sec. (12.2-14.9) 02/20/19 10:08 INR 1.13 (0.87-1.13) 02/20/19 10:08 APTT 28.5 Sec. (24.2-36.6) 02/20/19 10:08 D-Dimer 525.92 ng/mlDDU (0-234) H 02/19/19 23:07 POC ABG pH 7.229 (7.35-7.45) L 02/20/19 05:15 POC ABG pCO2 42.9 (35-45) 02/20/19 05:15 POC ABG pO2 101 (80-105) 02/20/19 05:15 POC ABG HCO3 17.9 (22-26 mml/L) 02/20/19 05:15 POC ABG Total CO2 19 (23-27mmol/L) 02/20/19 05:15 POC ABG O2 Sat 96 02/20/19 05:15 POC ABG Base Excess -10 ((-2) - (+3)mmol/L) 02/20/19 05:15 FiO2 50 % 02/20/19 05:15 Sodium 135 mmol/L (137-145) L 02/22/19 04:11 Potassium 4.1 mmol/L (3.6-5.0) 02/22/19 04:11 Chloride 100.9 mmol/L (98-107) 02/22/19 04:11 Carbon Dioxide 21 mmol/L (22-30) L 02/22/19 04:11 Anion Gap 17 mmol/L 02/22/19 04:11 BUN 26 mg/dL (9-20) H 02/22/19 04:11 Creatinine 1.2 mg/dL (0.8-1.5) 02/22/19 04:11 Estimated GFR > 60 ml/min 02/22/19 04:11 BUN/Creatinine Ratio 22 % 02/22/19 04:11 Glucose 104 mg/dL (75-100) H 02/22/19 04:11 POC Glucose 131 (70-105) H 02/20/19 16:42 Calcium 8.3 mg/dL (8.4-10.2) L 02/22/19 04:11 Phosphorus 5.80 mg/dL (2.5-4.5) H 02/20/19 06:44 Magnesium 2.30 mg/dL (1.7-2.3) 02/20/19 06:44 Total Bilirubin 0.50 mg/dL (0.1-1.2) 02/19/19 23:07 AST 121 units/L (5-40) H 02/19/19 23:07 ALT 113 units/L (7-56) H 02/19/19 23:07 Alkaline Phosphatase 74 units/L (35-129) 02/19/19 23:07 Total Creatine Kinase 484 units/L (55-170) H 02/20/19 06:44 CK-MB (CK-2) 7.4 ng/mL (0.0-4.0) H 02/20/19 06:44 CK-MB (CK-2) Rel Index 1.5 (0-4) 02/20/19 06:44 Troponin T 0.031 ng/mL (0.00-0.029) H D 02/20/19 06:44 NT-Pro-B Natriuret Pep 5554 pg/mL (0-900) H 02/19/19 23:07 Total Protein 7.1 g/dL (6.3-8.2) 02/19/19 23:07 Albumin 3.6 g/dL (3.9-5) L 02/19/19 23:07 Albumin/Globulin Ratio 1.0 % 02/19/19 23:07 Triglycerides 104 mg/dL (2-149) 02/20/19 06:44 Cholesterol 225 mg/dL (50-199) H 02/20/19 06:44 LDL Cholesterol Direct 148 mg/dL (50-130) H 02/20/19 06:44 HDL Cholesterol 74 mg/dL (40-59) H 02/20/19 06:44 Cholesterol/HDL Ratio 3.04 % 02/20/19 06:44 TSH 5.020 mlU/mL (0.270-4.200) H 02/19/19 23:07 Thyroxine (T4) 8.5 ug/dL (4.0-12.0) 02/20/19 06:44 Active Medications - Current Medications Current Medications: Generic Name Dose Route Start Last Admin Trade Name Freq PRN Reason Stop Dose Admin Acetaminophen 650 mg 02/20/19 03:07 Tylenol PO Q4H PRN Pain MILD(1-3)/Fever >100.5/FINE Aspirin 81 mg 02/21/19 10:00 02/21/19 09:52 Baby Aspirin PO 81 mg QDAY ERNIE Administration Atorvastatin Calcium 40 mg 02/20/19 22:00 02/21/19 21:47 Lipitor PO 40 mg QHS ERNIE Administration Carvedilol 6.25 mg 02/20/19 22:00 02/21/19 21:39 Coreg PO Not Given BID ERNIE Enoxaparin Sodium 40 mg 02/21/19 22:00 02/21/19 21:47 Enoxaparin SUB-Q 40 mg QDAY@2200 ERNIE Administration Furosemide 40 mg 02/21/19 18:00 02/22/19 06:21 Lasix IV 40 mg 0600,1800 ERNIE Administration Amiodarone HCl 900 mg/ 500 mls @ 33.333 mls/hr 02/21/19 21:45 Dextrose IV DIRECT ERNIE Protocol 1 MG/MIN Lisinopril 5 mg 02/21/19 10:00 02/21/19 09:50 Zestril PO 5 mg QDAY ERNIE Administration Ondansetron HCl 4 mg 02/20/19 03:07 Zofran IV Q8H PRN Nausea And Vomiting Sodium Chloride 10 ml 02/20/19 10:00 02/21/19 21:48 Sodium Chloride Flush Syringe 10 Ml IV Not Given BID ERNIE Sodium Chloride 10 ml 02/20/19 03:07 Sodium Chloride Flush Syringe 10 Ml IV PRN PRN LINE FLUSH
[2019-02-22] MEDS: ASPIRIN 81 MG TAB CHEW PO SCH (10:10)
[2019-02-22] MEDS: LISINOPRIL 5 MG TAB PO SCH (10:13)
[2019-02-22] MEDS: carvediloL 6.25 MG TAB PO SCH ×2 (10:30→21:20)
[2019-02-22] MEDS: SPIRONOLACTONE 25 MG TAB PO SCH (11:53)
--- NOTE | 2019-02-22 12:36 | Progress Note ---
Assessment and Plan Multiple runs of NSVT persist; however, patient is bradycardic with borderline blood pressures, so ability to utilize beta blockers is limited. Reinforced the importance of ICD with patient per the recommendations of Dr. Bess and he agrees to consider his options. Will obtain CXR to evaluate pulmonary status in an effort to transition Lasix to PO if appropriate. Continue current management for now. The patient has been seen in conjunction with Dr. Miranda, who agrees with the assessment and plan. - Patient Problems (1) Acute HFrEF (heart failure with reduced ejection fraction) Current Visit: Yes Status: Acute (2) Acute chest pain Current Visit: Yes Status: Acute (3) Nonischemic cardiomyopathy Current Visit: Yes Status: Acute (4) Ventricular tachycardia Current Visit: Yes Status: Acute (5) Nonobstructive atherosclerosis of coronary artery Current Visit: Yes Status: Chronic Subjective Date of service: 02/22/19 Principal diagnosis: HF; CMP; VT Interval history: The patient is lying in bed in [facility]. He has no cardiac complaints. Telemetry reviewed - SB in 50s with multiple runs of NSVT noted. Objective Last Vital Signs Temp 97.4 F L 02/22/19 08:23 Pulse 59 L 02/22/19 10:30 Resp 18 02/22/19 08:23 BP 97/50 02/22/19 11:56 Pulse Ox 100 02/22/19 10:10 - Physical Examination General: No Apparent Distress HEENT: Positive: PERRL, Normocephaly, Mucus Membranes Moist Neck: Positive: neck supple, trachea midline Cardiac: Positive: Reg Rate and Rhythm, Bradycardia, Other (NSVT) Lungs: Positive: Normal Exam Neuro: Positive: Grossly Intact Abdomen: Positive: Unremarkable. Negative: Tender /Rectal: Other (deferred) Skin: Positive: Clear. Negative: Rash Musculoskeletal: No Pain Extremities: Present: normal. Absent: edema - Labs and Meds Comprehensive Metabolic Panel 02/22/19 Range/Units 04:11 Sodium 135 L (137-145) mmol/L Potassium 4.1 (3.6-5.0) mmol/L Chloride 100.9 (98-107) mmol/L Carbon Dioxide 21 L (22-30) mmol/L BUN 26 H (9-20) mg/dL Creatinine 1.2 (0.8-1.5) mg/dL Glucose 104 H (75-100) mg/dL Calcium 8.3 L (8.4-10.2) mg/dL - Imaging and Cardiology EKG: report reviewed, image reviewed Echo: report reviewed ( EF 10-15%, mild LVH, RV mildly dilated, grade 2 diastolic dysfunction, mild to mod MR, mild TR, left pleural effusion present. ) Cardiac cath: report reviewed (mild nonobstructive CAD, EF 10-15%, elevated LVEDP. ) - Telemetry EKG Rhythm: Sinus Rhythm - EKG Sinus rhythms and dysrhythmias: sinus rhythm Ventricular dysrhythmias: ventricular premature com, non-sustained ventricular
[2019-02-22] MEDS: AMIODARONE 900 MG in DEXTROSE 5% IN WATER 482 ML IV SCH (12:48)
--- NOTE | 2019-02-22 14:13 | XRay Report ---
CHEST 1 VIEW INDICATION / CLINICAL INFORMATION: Evaluate pulm edema. COMPARISON: None available. FINDINGS: SUPPORT DEVICES: None. HEART / MEDIASTINUM: No significant abnormality. LUNGS / PLEURA: Increasing airspace opacity within both lower lungs, left worse than right. The upper lungs are clear. Signer Name: Luis Pastrana MD Signed: 02/22/2019 2:09 PM Workstation Name: [email or web address]
[2019-02-22] MEDS: ENOXAPARIN 40 MG/0.4 ML INJ SUB-Q SCH (21:20)
[2019-02-23] MEDS: AMIODARONE 900 MG in DEXTROSE 5% IN WATER 482 ML IV SCH (05:53)
[2019-02-23] MEDS: FUROSEMIDE 40 MG/4 ML INJ IV SCH (05:54)
[2019-02-23] MEDS: ASPIRIN 81 MG TAB CHEW PO SCH (09:09)
[2019-02-23] MEDS: SPIRONOLACTONE 25 MG TAB PO SCH (09:10)
[2019-02-23] MEDS: LISINOPRIL 5 MG TAB PO SCH (09:12)
[2019-02-23 09:44] LABS: Bilirubin,Urine NEG (Negative); Blood,Urine SM (Negative); Color,Urine Yellow (Yellow); Protein,Urine <15 mg/dL mg/dL (Negative); Urobilinogen,Urine < 2.0 mg/dL (<2.0); WBC,Urine < 1.0 /HPF (0.0-6.0)
--- NOTE | 2019-02-23 10:51 | Progress Note ---
Assessment and Plan The patient's cardiac status is improving. Will transition to PO amiodarone - order placed to DC IV amio eight hours after initiating PO. Will also transition to PO Lasix. Recommend monitoring on telemetry until tomorrow. Continue other cardiac management - will consider addition of spironolactone once HR and BP can better tolerate. Discussed outpatient follow up with patient and . The patient has been seen in conjunction with Dr. Miranda, who agrees with the assessment and plan. - Patient Problems (1) Acute HFrEF (heart failure with reduced ejection fraction) Current Visit: Yes Status: Acute (2) Acute chest pain Current Visit: Yes Status: Resolved (3) Nonischemic cardiomyopathy Current Visit: Yes Status: Acute (4) Ventricular tachycardia Current Visit: Yes Status: Acute (5) Nonobstructive atherosclerosis of coronary artery Current Visit: Yes Status: Chronic Subjective Principal diagnosis: HF; CMP; VT Interval history: The patient is lying in bed in [facility]. He has no complaints. Telemetry reviewed - SR in 60s with no events since yesterday afternoon. Objective Last Vital Signs Temp 97.8 F 02/23/19 07:45 Pulse 59 L 02/23/19 09:12 Resp 15 02/23/19 08:00 BP 110/64 02/23/19 09:12 Pulse Ox 97 02/23/19 08:00 - Physical Examination General: No Apparent Distress HEENT: Positive: PERRL, Normocephaly, Mucus Membranes Moist Neck: Positive: neck supple, trachea midline Cardiac: Positive: Reg Rate and Rhythm Lungs: Positive: Normal Exam Neuro: Positive: Grossly Intact Abdomen: Positive: Unremarkable. Negative: Tender /Rectal: Other (deferred) Skin: Positive: Clear. Negative: Rash Musculoskeletal: No Pain Extremities: Present: normal. Absent: edema - Imaging and Cardiology EKG: report reviewed, image reviewed Echo: report reviewed ( EF 10-15%, mild LVH, RV mildly dilated, grade 2 diastolic dysfunction, mild to mod MR, mild TR, left pleural effusion present. ) Cardiac cath: report reviewed (mild nonobstructive CAD, EF 10-15%, elevated LVEDP. ) - Telemetry EKG Rhythm: Sinus Rhythm - EKG Sinus rhythms and dysrhythmias: sinus rhythm Ventricular dysrhythmias: ventricular premature com, non-sustained ventricular
--- NOTE | 2019-02-23 11:01 | Progress Note ---
Assessment and Plan Assessment and plan: Ventricular tachycardia - On IV amiodarone drip and oral carvedilol. To be transitioned to oral amiodar one today - No V. 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 - Lasix changed to oral today. Continue BB, aldactone and ACEI - echo showed EF of 10-15% with grade 2 diastolic dysf - cardiology following Nonischemic cardiomyopathy -tx as above Acute chest pain, r/o ACS - s/p LHC which showed no significant stenosis Nonobstructive atherosclerosis of coronary artery - continue current medication regimen Hyperlipidemia - Continue statin Leukocytosis -Probably reactive, will monitor -CTA and UA neg for acute infection DVT prophylaxis - Lovenox Disposition: d/c per cardiology History Interval history: Patient has no new complaints. He denied chest pain or sob. Hospitalist Physical - Constitutional Vitals: Temp Pulse Resp BP Pulse Ox 97.8 F 59 L 15 110/64 97 02/23/19 07:45 02/23/19 09:12 02/23/19 08:00 02/23/19 09:12 02/23/19 08:00 General appearance: Present: no acute distress, well-nourished - EENT Eyes: Present: PERRL, EOM intact ENT: hearing intact, clear oral mucosa - Neck Neck: Present: supple - Respiratory Respiratory effort: normal Respiratory: bilateral: CTA, diminished - Cardiovascular Rhythm: regular (with bradycardia) Heart Sounds: Present: S1 & S2 - Extremities Extremities: No edema - Abdominal General gastrointestinal: soft, non-tender, non-distended, normal bowel sounds - Integumentary Integumentary: Present: clear, warm, dry - Psychiatric Psychiatric: appropriate mood/affect - Neurologic Neurologic: CNII-XII intact Results - Labs CBC & Chem 7: 02/21/19 03:43 02/22/19 04:11 Labs: Laboratory Last Values WBC 14.1 K/mm3 (4.5-11.0) H 02/21/19 03:43 RBC 4.69 M/mm3 (3.65-5.03) 02/21/19 03:43 Hgb 13.9 gm/dl (11.8-15.2) 02/21/19 03:43 Hct 41.8 % (35.5-45.6) 02/21/19 03:43 MCV 89 fl (84-94) 02/21/19 03:43 MCH 30 pg (28-32) 02/21/19 03:43 MCHC 33 % (32-34) 02/21/19 03:43 RDW 14.0 % (13.2-15.2) 02/21/19 03:43 Plt Count 208 K/mm3 (140-440) 02/21/19 03:43 Lymph % (Auto) 7.6 % (13.4-35.0) L 02/21/19 03:43 [facility] % (Auto) 10.7 % (0.0-7.3) H 02/21/19 03:43 Eos % (Auto) 0.1 % (0.0-4.3) 02/21/19 03:43 Baso % (Auto) 0.1 % (0.0-1.8) 02/21/19 03:43 Lymph # 1.1 K/mm3 (1.2-5.4) L 02/21/19 03:43 [facility] # 1.5 K/mm3 (0.0-0.8) H 02/21/19 03:43 Eos # 0.0 K/mm3 (0.0-0.4) 02/21/19 03:43 Baso # 0.0 K/mm3 (0.0-0.1) 02/21/19 03:43 Seg Neutrophils % 81.5 % (40.0-70.0) H 02/21/19 03:43 Seg Neutrophils # 11.5 K/mm3 (1.8-7.7) H 02/21/19 03:43 PT 14.4 Sec. (12.2-14.9) 02/20/19 10:08 INR 1.13 (0.87-1.13) 02/20/19 10:08 APTT 28.5 Sec. (24.2-36.6) 02/20/19 10:08 D-Dimer 525.92 ng/mlDDU (0-234) H 02/19/19 23:07 POC ABG pH 7.229 (7.35-7.45) L 02/20/19 05:15 POC ABG pCO2 42.9 (35-45) 02/20/19 05:15 POC ABG pO2 101 (80-105) 02/20/19 05:15 POC ABG HCO3 17.9 (22-26 mml/L) 02/20/19 05:15 POC ABG Total CO2 19 (23-27mmol/L) 02/20/19 05:15 POC ABG O2 Sat 96 02/20/19 05:15 POC ABG Base Excess -10 ((-2) - (+3)mmol/L) 02/20/19 05:15 FiO2 50 % 02/20/19 05:15 Sodium 135 mmol/L (137-145) L 02/22/19 04:11 Potassium 4.1 mmol/L (3.6-5.0) 02/22/19 04:11 Chloride 100.9 mmol/L (98-107) 02/22/19 04:11 Carbon Dioxide 21 mmol/L (22-30) L 02/22/19 04:11 Anion Gap 17 mmol/L 02/22/19 04:11 BUN 26 mg/dL (9-20) H 02/22/19 04:11 Creatinine 1.2 mg/dL (0.8-1.5) 02/22/19 04:11 Estimated GFR > 60 ml/min 02/22/19 04:11 BUN/Creatinine Ratio 22 % 02/22/19 04:11 Glucose 104 mg/dL (75-100) H 02/22/19 04:11 POC Glucose 131 (70-105) H 02/20/19 16:42 Calcium 8.3 mg/dL (8.4-10.2) L 02/22/19 04:11 Phosphorus 5.80 mg/dL (2.5-4.5) H 02/20/19 06:44 Magnesium 2.30 mg/dL (1.7-2.3) 02/20/19 06:44 Total Bilirubin 0.50 mg/dL (0.1-1.2) 02/19/19 23:07 AST 121 units/L (5-40) H 02/19/19 23:07 ALT 113 units/L (7-56) H 02/19/19 23:07 Alkaline Phosphatase 74 units/L (35-129) 02/19/19 23:07 Total Creatine Kinase 484 units/L (55-170) H 02/20/19 06:44 CK-MB (CK-2) 7.4 ng/mL (0.0-4.0) H 02/20/19 06:44 CK-MB (CK-2) Rel Index 1.5 (0-4) 02/20/19 06:44 Troponin T 0.031 ng/mL (0.00-0.029) H D 02/20/19 06:44 NT-Pro-B Natriuret Pep 5554 pg/mL (0-900) H 02/19/19 23:07 Total Protein 7.1 g/dL (6.3-8.2) 02/19/19 23:07 Albumin 3.6 g/dL (3.9-5) L 02/19/19 23:07 Albumin/Globulin Ratio 1.0 % 02/19/19 23:07 Triglycerides 104 mg/dL (2-149) 02/20/19 06:44 Cholesterol 225 mg/dL (50-199) H 02/20/19 06:44 LDL Cholesterol Direct 148 mg/dL (50-130) H 02/20/19 06:44 HDL Cholesterol 74 mg/dL (40-59) H 02/20/19 06:44 Cholesterol/HDL Ratio 3.04 % 02/20/19 06:44 TSH 5.020 mlU/mL (0.270-4.200) H 02/19/19 23:07 Thyroxine (T4) 8.5 ug/dL (4.0-12.0) 02/20/19 06:44 Urine Color Yellow (Yellow) 02/23/19 09:20 Urine Turbidity Clear (Clear) 02/23/19 09:20 Urine pH 6.0 (5.0-7.0) 02/23/19 09:20 Ur Specific [place] 1.009 (1.003-1.030) 02/23/19 09:20 Urine Protein <15 mg/dl mg/dL (Negative) 02/23/19 09:20 Urine Glucose (UA) Neg mg/dL (Negative) 02/23/19 09:20 Urine Ketones Neg mg/dL (Negative) 02/23/19 09:20 Urine Blood Sm (Negative) 02/23/19 09:20 Urine Nitrite Neg (Negative) 02/23/19 09:20 Urine Bilirubin Neg (Negative) 02/23/19 09:20 Urine Urobilinogen < 2.0 mg/dL (<2.0) 02/23/19 09:20 Ur Leukocyte Esterase Neg (Negative) 02/23/19 09:20 Urine WBC (Auto) < 1.0 /HPF (0.0-6.0) 02/23/19 09:20 Urine RBC (Auto) 1.0 /HPF (0.0-6.0) 02/23/19 09:20 Active Medications - Current Medications Current Medications: Generic Name Dose Route Start Last Admin Trade Name Freq PRN Reason Stop Dose Admin Acetaminophen 650 mg 02/20/19 03:07 Tylenol PO Q4H PRN Pain MILD(1-3)/Fever >100.5/FINE Amiodarone HCl 400 mg 02/23/19 11:00 Cordarone PO BID ERNIE Aspirin 81 mg 02/21/19 10:00 02/23/19 09:09 Baby Aspirin PO 81 mg QDAY ERNIE Administration Atorvastatin Calcium 40 mg 02/20/19 22:00 02/22/19 21:20 Lipitor PO 40 mg QHS ERNIE Administration Carvedilol 6.25 mg 02/20/19 22:00 02/22/19 21:20 Coreg PO 6.25 mg BID ERNIE Administration Enoxaparin Sodium 40 mg 02/21/19 22:00 02/22/19 21:20 Enoxaparin SUB-Q 40 mg QDAY@2200 ERNIE Administration Furosemide 40 mg 02/24/19 06:00 Lasix PO DAILY@0600 [facility] Amiodarone HCl 900 mg/ 500 mls @ 33.333 mls/hr 02/21/19 21:45 02/23/19 05:53 Dextrose IV 02/23/19 20:00 0.5 mg/min DIRECT ERNIE 16.667 mls/hr Administration Protocol 1 MG/MIN Lisinopril 5 mg 02/21/19 10:00 02/23/19 09:12 Zestril PO 5 mg QDAY ERNIE Administration Ondansetron HCl 4 mg 02/20/19 03:07 Zofran IV Q8H PRN Nausea And Vomiting Sodium Chloride 10 ml 02/20/19 10:00 02/23/19 09:13 Sodium Chloride Flush Syringe 10 Ml IV 10 ml BID ERNIE Administration Sodium Chloride 10 ml 02/20/19 03:07 Sodium Chloride Flush Syringe 10 Ml IV PRN PRN LINE FLUSH Spironolactone 12.5 mg 02/22/19 12:00 02/23/19 09:10 Aldactone PO 12.5 mg QDAY ERNIE Administration
[2019-02-23] MEDS: AMIODARONE 200 MG TAB PO SCH ×2 (11:10→21:26)
[2019-02-23] MEDS: carvediloL 6.25 MG TAB PO SCH ×2 (12:11→21:28)
[2019-02-23] MEDS: ENOXAPARIN 40 MG/0.4 ML INJ SUB-Q SCH (21:27)
[2019-02-24] MEDS: FUROSEMIDE 40 MG TAB PO SCH (05:18)
[2019-02-24 06:36] LABS: Hemoglobin 13.5 gm/dl (11.8-15.2); Mean Corpuscular HGB Conc 34 % (32-34); Mean Corpuscular Volume 89 fl (84-94); Platelet Count 180 K/mm3 (140-440); Red Blood Count 4.51 M/mm3 (3.65-5.03); Red Cell Distribution Width 13.1 % (13.2-15.2)
[2019-02-24 06:55] LABS: BUN/Creatinine Ratio 14; Blood Urea Nitrogen 15 mg/dL (9-20); Calcium 8.3 mg/dL (8.4-10.2); Hemolysis Index 29
[2019-02-24] MEDS: carvediloL 6.25 MG TAB PO SCH ×2 (10:01→22:36)
[2019-02-24] MEDS: AMIODARONE 200 MG TAB PO SCH (10:05)
[2019-02-24] MEDS: SPIRONOLACTONE 25 MG TAB PO SCH (10:06)
[2019-02-24] MEDS: ASPIRIN 81 MG TAB CHEW PO SCH (10:07)
[2019-02-24] MEDS: LISINOPRIL 5 MG TAB PO SCH (10:07)
--- NOTE | 2019-02-24 12:32 | Progress Note ---
Assessment and Plan Currently stable cardiac status. D/c amio per Dr. Bess. Pt for AICD implantation tomorrow. NPO after MN. The patient has been seen in conjunction with Dr. Gifford who agrees with the assessment and plan of care. - Patient Problems (1) Ventricular tachycardia Current Visit: Yes Status: Acute (2) Acute HFrEF (heart failure with reduced ejection fraction) Current Visit: Yes Status: Acute (3) Nonischemic cardiomyopathy Current Visit: Yes Status: Acute (4) Chest pain Current Visit: Yes Status: Resolved (5) Nonobstructive atherosclerosis of coronary artery Current Visit: Yes Status: Chronic (6) Hyperlipidemia Current Visit: Yes Status: Chronic Subjective Date of service: 02/24/19 Principal diagnosis: HF; CMP; VT Interval history: pt resting up at bedside, no current complaints. states he is feeling better today. tele reviewed - in SR, no NSVT since Sunday. Objective Last Vital Signs Temp 98.1 F 02/24/19 08:48 Pulse 58 L 02/24/19 10:00 Resp 18 02/24/19 08:48 BP 102/56 02/24/19 08:48 Pulse Ox 97 02/24/19 08:48 - Physical Examination General: No Apparent Distress HEENT: Positive: PERRL, Normocephaly, Mucus Membranes Moist Neck: Positive: neck supple, trachea midline Cardiac: Positive: Reg Rate and Rhythm, S1/S2 Lungs: Positive: Decreased Breath Sounds Neuro: Positive: Grossly Intact Abdomen: Positive: Unremarkable. Negative: Tender Skin: Positive: Clear. Negative: Rash Musculoskeletal: No Pain Extremities: Present: normal. Absent: edema - Labs and Meds CBC 02/24/19 Range/Units 05:55 WBC 10.2 (4.5-11.0) K/mm3 RBC 4.51 (3.65-5.03) M/mm3 Hgb 13.5 (11.8-15.2) gm/dl Hct 40.0 (35.5-45.6) % Plt Count 180 (140-440) K/mm3 Comprehensive Metabolic Panel 02/24/19 Range/Units 05:55 Sodium 135 L (137-145) mmol/L Potassium 4.3 (3.6-5.0) mmol/L Chloride 101.7 (98-107) mmol/L Carbon Dioxide 22 (22-30) mmol/L BUN 15 (9-20) mg/dL Creatinine 1.1 (0.8-1.5) mg/dL Glucose 110 H (75-100) mg/dL Calcium 8.3 L (8.4-10.2) mg/dL - Imaging and Cardiology EKG: report reviewed, image reviewed Echo: report reviewed ( EF 10-15%, mild LVH, RV mildly dilated, grade 2 diastolic dysfunction, mild to mod MR, mild TR, left pleural effusion present. ) Cardiac cath: report reviewed (mild nonobstructive CAD, EF 10-15%, elevated LVEDP. ) - Telemetry EKG Rhythm: Sinus Rhythm - EKG Sinus rhythms and dysrhythmias: sinus rhythm Ventricular dysrhythmias: ventricular premature com, non-sustained ventricular
[2019-02-24] MEDS ORDERED: SODIUM CHLORIDE 0.9% 500 ML 500 ML IV SCH (13:00)
--- NOTE | 2019-02-24 14:21 | Progress Note ---
Assessment and Plan Assessment and plan: 53-year-old man who was admitted to the hospital for chest pain palpitations. Found to have v Tach. V. tach Discussed with cardiology, amnio has been discontinued, for ICD tomorrow New onset Acute combined CHF, EF 10% Meds optimized by cardiology, currently euvolemic Nonischemic cardiomyopathy Status post left heart cath which was negative Hyperlipidemia, continue statin Reactive leukocytosis CTA, UA negative for infection. DVT prophylaxis Lovenox History Interval history: Review of systems Constitutional: No fevers, no malaise, no joint pains CVS: No chest pain, no orthopnea, no pedal edema GI: No abdominal pain, no diarrhea, no vomiting, no constipation Respiratory: No shortness of breath, no wheezing, no coughing Hospitalist Physical - Physical exam Narrative exam: General.: Appears well, no distress, nontoxic HEENT: Moist mucous membranes, extraocular muscles intact, no lymphadenopathy Neck: supple Cardiac: S1-S2 heard Lungs: clear to auscultation bilaterally Abdomen: soft , nontender, nondistended, bowel sounds positive Extremities: no edema clubbing or cyanosis Skin: no rash or lesions Neurologic: no gross focal deficits Psych: calm, and cooperative - Constitutional Vitals: Temp Pulse Resp BP Pulse Ox 98.1 F 58 L 18 102/56 97 02/24/19 08:48 02/24/19 10:00 02/24/19 08:48 02/24/19 08:48 02/24/19 10:00 General appearance: Present: no acute distress, well-nourished Results - Labs CBC & Chem 7: 02/24/19 05:55 02/24/19 05:55 Labs: Laboratory Last Values WBC 10.2 K/mm3 (4.5-11.0) 02/24/19 05:55 RBC 4.51 M/mm3 (3.65-5.03) 02/24/19 05:55 Hgb 13.5 gm/dl (11.8-15.2) 02/24/19 05:55 Hct 40.0 % (35.5-45.6) 02/24/19 05:55 MCV 89 fl (84-94) 02/24/19 05:55 MCH 30 pg (28-32) 02/24/19 05:55 MCHC 34 % (32-34) 02/24/19 05:55 RDW 13.1 % (13.2-15.2) L 02/24/19 05:55 Plt Count 180 K/mm3 (140-440) 02/24/19 05:55 Lymph % (Auto) 7.6 % (13.4-35.0) L 02/21/19 03:43 [place] % (Auto) 10.7 % (0.0-7.3) H 02/21/19 03:43 Eos % (Auto) 0.1 % (0.0-4.3) 02/21/19 03:43 Baso % (Auto) 0.1 % (0.0-1.8) 02/21/19 03:43 Lymph # 1.1 K/mm3 (1.2-5.4) L 02/21/19 03:43 [place] # 1.5 K/mm3 (0.0-0.8) H 02/21/19 03:43 Eos # 0.0 K/mm3 (0.0-0.4) 02/21/19 03:43 Baso # 0.0 K/mm3 (0.0-0.1) 02/21/19 03:43 Seg Neutrophils % 81.5 % (40.0-70.0) H 02/21/19 03:43 Seg Neutrophils # 11.5 K/mm3 (1.8-7.7) H 02/21/19 03:43 PT 14.4 Sec. (12.2-14.9) 02/20/19 10:08 INR 1.13 (0.87-1.13) 02/20/19 10:08 APTT 28.5 Sec. (24.2-36.6) 02/20/19 10:08 D-Dimer 525.92 ng/mlDDU (0-234) H 02/19/19 23:07 POC ABG pH 7.229 (7.35-7.45) L 02/20/19 05:15 POC ABG pCO2 42.9 (35-45) 02/20/19 05:15 POC ABG pO2 101 (80-105) 02/20/19 05:15 POC ABG HCO3 17.9 (22-26 mml/L) 02/20/19 05:15 POC ABG Total CO2 19 (23-27mmol/L) 02/20/19 05:15 POC ABG O2 Sat 96 02/20/19 05:15 POC ABG Base Excess -10 ((-2) - (+3)mmol/L) 02/20/19 05:15 FiO2 50 % 02/20/19 05:15 Sodium 135 mmol/L (137-145) L 02/24/19 05:55 Potassium 4.3 mmol/L (3.6-5.0) 02/24/19 05:55 Chloride 101.7 mmol/L (98-107) 02/24/19 05:55 Carbon Dioxide 22 mmol/L (22-30) 02/24/19 05:55 Anion Gap 16 mmol/L 02/24/19 05:55 BUN 15 mg/dL (9-20) 02/24/19 05:55 Creatinine 1.1 mg/dL (0.8-1.5) 02/24/19 05:55 Estimated GFR > 60 ml/min 02/24/19 05:55 BUN/Creatinine Ratio 14 % 02/24/19 05:55 Glucose 110 mg/dL (75-100) H 02/24/19 05:55 POC Glucose 131 (70-105) H 02/20/19 16:42 Calcium 8.3 mg/dL (8.4-10.2) L 02/24/19 05:55 Phosphorus 5.80 mg/dL (2.5-4.5) H 02/20/19 06:44 Magnesium 2.30 mg/dL (1.7-2.3) 02/20/19 06:44 Total Bilirubin 0.50 mg/dL (0.1-1.2) 02/19/19 23:07 AST 121 units/L (5-40) H 02/19/19 23:07 ALT 113 units/L (7-56) H 02/19/19 23:07 Alkaline Phosphatase 74 units/L (35-129) 02/19/19 23:07 Total Creatine Kinase 484 units/L (55-170) H 02/20/19 06:44 CK-MB (CK-2) 7.4 ng/mL (0.0-4.0) H 02/20/19 06:44 CK-MB (CK-2) Rel Index 1.5 (0-4) 02/20/19 06:44 Troponin T 0.031 ng/mL (0.00-0.029) H D 02/20/19 06:44 NT-Pro-B Natriuret Pep 5554 pg/mL (0-900) H 02/19/19 23:07 Total Protein 7.1 g/dL (6.3-8.2) 02/19/19 23:07 Albumin 3.6 g/dL (3.9-5) L 02/19/19 23:07 Albumin/Globulin Ratio 1.0 % 02/19/19 23:07 Triglycerides 104 mg/dL (2-149) 02/20/19 06:44 Cholesterol 225 mg/dL (50-199) H 02/20/19 06:44 LDL Cholesterol Direct 148 mg/dL (50-130) H 02/20/19 06:44 HDL Cholesterol 74 mg/dL (40-59) H 02/20/19 06:44 Cholesterol/HDL Ratio 3.04 % 02/20/19 06:44 TSH 5.020 mlU/mL (0.270-4.200) H 02/19/19 23:07 Thyroxine (T4) 8.5 ug/dL (4.0-12.0) 02/20/19 06:44 Urine Color Yellow (Yellow) 02/23/19 09:20 Urine Turbidity Clear (Clear) 02/23/19 09:20 Urine pH 6.0 (5.0-7.0) 02/23/19 09:20 Ur Specific [place] 1.009 (1.003-1.030) 02/23/19 09:20 Urine Protein <15 mg/dl mg/dL (Negative) 02/23/19 09:20 Urine Glucose (UA) Neg mg/dL (Negative) 02/23/19 09:20 Urine Ketones Neg mg/dL (Negative) 02/23/19 09:20 Urine Blood Sm (Negative) 02/23/19 09:20 Urine Nitrite Neg (Negative) 02/23/19 09:20 Urine Bilirubin Neg (Negative) 02/23/19 09:20 Urine Urobilinogen < 2.0 mg/dL (<2.0) 02/23/19 09:20 Ur Leukocyte Esterase Neg (Negative) 02/23/19 09:20 Urine WBC (Auto) < 1.0 /HPF (0.0-6.0) 02/23/19 09:20 Urine RBC (Auto) 1.0 /HPF (0.0-6.0) 02/23/19 09:20 Active Medications - Current Medications Current Medications: Generic Name Dose Route Start Last Admin Trade Name Freq PRN Reason Stop Dose Admin Acetaminophen 650 mg 02/20/19 03:07 Tylenol PO Q4H PRN Pain MILD(1-3)/Fever >100.5/FINE Aspirin 81 mg 02/21/19 10:00 02/24/19 10:07 Baby Aspirin PO 81 mg QDAY ERNIE Administration Atorvastatin Calcium 40 mg 02/20/19 22:00 02/23/19 21:27 Lipitor PO 40 mg QHS ERNIE Administration Carvedilol 6.25 mg 02/20/19 22:00 02/24/19 10:01 Coreg PO Not Given BID ERNIE Enoxaparin Sodium 40 mg 02/21/19 22:00 02/23/19 21:27 Enoxaparin SUB-Q 40 mg QDAY@2200 ERNIE Administration Furosemide 40 mg 02/24/19 06:00 02/24/19 05:18 Lasix PO 40 mg DAILY@0600 ERNIE Administration Sodium Chloride 500 mls @ 50 mls/hr 02/25/19 05:00 Nacl 0.9% 500 Ml IV 02/25/19 14:59 DIRECT ERNIE Lisinopril 5 mg 02/21/19 10:00 02/24/19 10:07 Zestril PO Not Given QDAY ERNIE Ondansetron HCl 4 mg 02/20/19 03:07 Zofran IV Q8H PRN Nausea And Vomiting Sodium Chloride 10 ml 02/20/19 10:00 02/24/19 10:07 Sodium Chloride Flush Syringe 10 Ml IV 10 ml BID ERNIE Administration Sodium Chloride 10 ml 02/20/19 03:07 Sodium Chloride Flush Syringe 10 Ml IV PRN PRN LINE FLUSH Spironolactone 12.5 mg 02/22/19 12:00 02/24/19 10:06 Aldactone PO 12.5 mg QDAY ERNIE Administration
[2019-02-24] MEDS: ENOXAPARIN 40 MG/0.4 ML INJ SUB-Q SCH (22:28)
[2019-02-25] MEDS ORDERED: SODIUM CHLORIDE 0.9% 500 ML 500 ML IV SCH (05:00)
[2019-02-25 05:45] LABS: Basophils % (Auto) 0.5 % (0.0-1.8); Eosinophils # (Auto) 0.1 K/mm3 (0.0-0.4); Eosinophils % (Auto) 1.6 % (0.0-4.3); Hematocrit 42.8 % (35.5-45.6); Hemoglobin 14.3 gm/dl (11.8-15.2); Lymphocytes # (Auto) 1.4 K/mm3 (1.2-5.4); Lymphocytes % (Auto) 16.1 % (13.4-35.0); Mean Corpuscular HGB Conc 33 % (32-34); Mean Corpuscular Volume 89 fl (84-94); Monocytes # (Auto) 1.2 K/mm3 (0.0-0.8); Monocytes % (Auto) 13.8 % (0.0-7.3); Red Cell Distribution Width 13.3 % (13.2-15.2)
[2019-02-25 05:48] LABS: INR 1.21 (0.87-1.13)
[2019-02-25 06:00] LABS: BUN/Creatinine Ratio 15; Blood Urea Nitrogen 16 mg/dL (9-20); Calcium 8.4 mg/dL (8.4-10.2); Hemolysis Index 21
[2019-02-25 06:49] LABS: Platelet Count 196 K/mm3 (140-440)
[2019-02-25] MEDS: FUROSEMIDE 40 MG TAB PO SCH (07:20)
--- NOTE | 2019-02-25 10:11 | Progress Note ---
Assessment and Plan Currently stable cardiac status. Pt for AICD implantation today. The patient has been seen in conjunction with Dr. Gifford who agrees with the assessment and plan of care. - Patient Problems (1) Ventricular tachycardia Current Visit: Yes Status: Acute (2) Acute HFrEF (heart failure with reduced ejection fraction) Current Visit: Yes Status: Acute (3) Nonischemic cardiomyopathy Current Visit: Yes Status: Acute (4) Chest pain Current Visit: Yes Status: Resolved (5) Nonobstructive atherosclerosis of coronary artery Current Visit: Yes Status: Chronic (6) Hyperlipidemia Current Visit: Yes Status: Chronic Subjective Date of service: 02/25/19 Principal diagnosis: HF; CMP; VT Interval history: pt resting in bed, no current complaints. tele reviewed - in SR, no NSVT since Sunday. Objective Last Vital Signs Temp 98.2 F 02/25/19 03:33 Pulse 61 02/25/19 03:33 Resp 16 02/25/19 03:33 BP 88/48 02/25/19 03:33 Pulse Ox 96 02/25/19 03:33 - Physical Examination General: No Apparent Distress HEENT: Positive: PERRL, Normocephaly, Mucus Membranes Moist Neck: Positive: neck supple, trachea midline Cardiac: Positive: Reg Rate and Rhythm, S1/S2 Lungs: Positive: Decreased Breath Sounds Neuro: Positive: Grossly Intact Abdomen: Positive: Unremarkable. Negative: Tender /Rectal: Other (deferred) Skin: Positive: Clear. Negative: Rash Musculoskeletal: No Pain Extremities: Present: normal. Absent: edema - Labs and Meds Coagulation 02/25/19 Range/Units 04:11 PT 15.2 H (12.2-14.9) Sec. INR 1.21 H (0.87-1.13) CBC 02/25/19 Range/Units 04:11 WBC 9.0 (4.5-11.0) K/mm3 RBC 4.80 (3.65-5.03) M/mm3 Hgb 14.3 (11.8-15.2) gm/dl Hct 42.8 (35.5-45.6) % Plt Count 196 (140-440) K/mm3 Lymph # 1.4 (1.2-5.4) K/mm3 [place] # 1.2 H (0.0-0.8) K/mm3 Eos # 0.1 (0.0-0.4) K/mm3 Baso # 0.0 (0.0-0.1) K/mm3 Comprehensive Metabolic Panel 02/25/19 Range/Units 04:11 Sodium 137 (137-145) mmol/L Potassium 4.6 (3.6-5.0) mmol/L Chloride 101.8 (98-107) mmol/L Carbon Dioxide 22 (22-30) mmol/L BUN 16 (9-20) mg/dL Creatinine 1.1 (0.8-1.5) mg/dL Glucose 90 (75-100) mg/dL Calcium 8.4 (8.4-10.2) mg/dL - Imaging and Cardiology EKG: report reviewed, image reviewed Echo: report reviewed ( EF 10-15%, mild LVH, RV mildly dilated, grade 2 diastolic dysfunction, mild to mod MR, mild TR, left pleural effusion present. ) Cardiac cath: report reviewed (mild nonobstructive CAD, EF 10-15%, elevated LVEDP. ) - EKG Sinus rhythms and dysrhythmias: sinus rhythm Ventricular dysrhythmias: ventricular premature com, non-sustained ventricular
[2019-02-25] MEDS: SPIRONOLACTONE 25 MG TAB PO SCH (10:39)
--- NOTE | 2019-02-25 11:05 | Progress Note ---
Assessment and Plan Assessment and plan: 53-year-old man who was admitted to the hospital for chest pain palpitations. Found to have v Tach. V. tach Discussed with cardiology, , for ICD today -Hold lisinopril Coreg Aldactone and Lasix as patient is bradycardic and hypotensive today. 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 DVT prophylaxis Lovenox History Interval history: Review of systems Constitutional: No fevers, no malaise, no joint pains CVS: No chest pain, no orthopnea, no pedal edema GI: No abdominal pain, no diarrhea, no vomiting, no constipation Respiratory: No shortness of breath, no wheezing, no coughing Hospitalist Physical - Physical exam Narrative exam: General.: Appears well, no distress, nontoxic HEENT: Moist mucous membranes, extraocular muscles intact, no lymphadenopathy Neck: supple Cardiac: S1-S2 heard Lungs: clear to auscultation bilaterally Abdomen: soft , nontender, nondistended, bowel sounds positive Extremities: no edema clubbing or cyanosis Skin: no rash or lesions Neurologic: no gross focal deficits Psych: calm, and cooperative - Constitutional Vitals: Temp Pulse Resp BP Pulse Ox 98.0 F 59 L 18 101/55 99 02/25/19 07:28 02/25/19 07:28 02/25/19 07:28 02/25/19 10:39 02/25/19 07:28 General appearance: Present: no acute distress, well-nourished Results - Labs CBC & Chem 7: 02/25/19 04:11 02/25/19 04:11 Labs: Laboratory Last Values WBC 9.0 K/mm3 (4.5-11.0) 02/25/19 04:11 RBC 4.80 M/mm3 (3.65-5.03) 02/25/19 04:11 Hgb 14.3 gm/dl (11.8-15.2) 02/25/19 04:11 Hct 42.8 % (35.5-45.6) 02/25/19 04:11 MCV 89 fl (84-94) 02/25/19 04:11 MCH 30 pg (28-32) 02/25/19 04:11 MCHC 33 % (32-34) 02/25/19 04:11 RDW 13.3 % (13.2-15.2) 02/25/19 04:11 Plt Count 196 K/mm3 (140-440) 02/25/19 04:11 Lymph % (Auto) 16.1 % (13.4-35.0) 02/25/19 04:11 [place] % (Auto) 13.8 % (0.0-7.3) H 02/25/19 04:11 Eos % (Auto) 1.6 % (0.0-4.3) 02/25/19 04:11 Baso % (Auto) 0.5 % (0.0-1.8) 02/25/19 04:11 Lymph # 1.4 K/mm3 (1.2-5.4) 02/25/19 04:11 [place] # 1.2 K/mm3 (0.0-0.8) H 02/25/19 04:11 Eos # 0.1 K/mm3 (0.0-0.4) 02/25/19 04:11 Baso # 0.0 K/mm3 (0.0-0.1) 02/25/19 04:11 Seg Neutrophils % 68.0 % (40.0-70.0) 02/25/19 04:11 Seg Neutrophils # 6.1 K/mm3 (1.8-7.7) 02/25/19 04:11 PT 15.2 Sec. (12.2-14.9) H 02/25/19 04:11 INR 1.21 (0.87-1.13) H 02/25/19 04:11 APTT 28.5 Sec. (24.2-36.6) 02/20/19 10:08 D-Dimer 525.92 ng/mlDDU (0-234) H 02/19/19 23:07 POC ABG pH 7.229 (7.35-7.45) L 02/20/19 05:15 POC ABG pCO2 42.9 (35-45) 02/20/19 05:15 POC ABG pO2 101 (80-105) 02/20/19 05:15 POC ABG HCO3 17.9 (22-26 mml/L) 02/20/19 05:15 POC ABG Total CO2 19 (23-27mmol/L) 02/20/19 05:15 POC ABG O2 Sat 96 02/20/19 05:15 POC ABG Base Excess -10 ((-2) - (+3)mmol/L) 02/20/19 05:15 FiO2 50 % 02/20/19 05:15 Sodium 137 mmol/L (137-145) 02/25/19 04:11 Potassium 4.6 mmol/L (3.6-5.0) 02/25/19 04:11 Chloride 101.8 mmol/L (98-107) 02/25/19 04:11 Carbon Dioxide 22 mmol/L (22-30) 02/25/19 04:11 Anion Gap 18 mmol/L 02/25/19 04:11 BUN 16 mg/dL (9-20) 02/25/19 04:11 Creatinine 1.1 mg/dL (0.8-1.5) 02/25/19 04:11 Estimated GFR > 60 ml/min 02/25/19 04:11 BUN/Creatinine Ratio 15 % 02/25/19 04:11 Glucose 90 mg/dL (75-100) 02/25/19 04:11 POC Glucose 95 (70-105) 02/25/19 06:24 Calcium 8.4 mg/dL (8.4-10.2) 02/25/19 04:11 Phosphorus 5.80 mg/dL (2.5-4.5) H 02/20/19 06:44 Magnesium 2.30 mg/dL (1.7-2.3) 02/20/19 06:44 Total Bilirubin 0.50 mg/dL (0.1-1.2) 02/19/19 23:07 AST 121 units/L (5-40) H 02/19/19 23:07 ALT 113 units/L (7-56) H 02/19/19 23:07 Alkaline Phosphatase 74 units/L (35-129) 02/19/19 23:07 Total Creatine Kinase 484 units/L (55-170) H 02/20/19 06:44 CK-MB (CK-2) 7.4 ng/mL (0.0-4.0) H 02/20/19 06:44 CK-MB (CK-2) Rel Index 1.5 (0-4) 02/20/19 06:44 Troponin T 0.031 ng/mL (0.00-0.029) H D 02/20/19 06:44 NT-Pro-B Natriuret Pep 5554 pg/mL (0-900) H 02/19/19 23:07 Total Protein 7.1 g/dL (6.3-8.2) 02/19/19 23:07 Albumin 3.6 g/dL (3.9-5) L 02/19/19 23:07 Albumin/Globulin Ratio 1.0 % 02/19/19 23:07 Triglycerides 104 mg/dL (2-149) 02/20/19 06:44 Cholesterol 225 mg/dL (50-199) H 02/20/19 06:44 LDL Cholesterol Direct 148 mg/dL (50-130) H 02/20/19 06:44 HDL Cholesterol 74 mg/dL (40-59) H 02/20/19 06:44 Cholesterol/HDL Ratio 3.04 % 02/20/19 06:44 TSH 5.020 mlU/mL (0.270-4.200) H 02/19/19 23:07 Thyroxine (T4) 8.5 ug/dL (4.0-12.0) 02/20/19 06:44 Urine Color Yellow (Yellow) 02/23/19 09:20 Urine Turbidity Clear (Clear) 02/23/19 09:20 Urine pH 6.0 (5.0-7.0) 02/23/19 09:20 Ur Specific [place] 1.009 (1.003-1.030) 02/23/19 09:20 Urine Protein <15 mg/dl mg/dL (Negative) 02/23/19 09:20 Urine Glucose (UA) Neg mg/dL (Negative) 02/23/19 09:20 Urine Ketones Neg mg/dL (Negative) 02/23/19 09:20 Urine Blood Sm (Negative) 02/23/19 09:20 Urine Nitrite Neg (Negative) 02/23/19 09:20 Urine Bilirubin Neg (Negative) 02/23/19 09:20 Urine Urobilinogen < 2.0 mg/dL (<2.0) 02/23/19 09:20 Ur Leukocyte Esterase Neg (Negative) 02/23/19 09:20 Urine WBC (Auto) < 1.0 /HPF (0.0-6.0) 02/23/19 09:20 Urine RBC (Auto) 1.0 /HPF (0.0-6.0) 02/23/19 09:20 Active Medications - Current Medications Current Medications: Generic Name Dose Route Start Last Admin Trade Name Freq PRN Reason Stop Dose Admin Acetaminophen 650 mg 02/20/19 03:07 Tylenol PO Q4H PRN Pain MILD(1-3)/Fever >100.5/FINE Aspirin 81 mg 02/21/19 10:00 02/24/19 10:07 Baby Aspirin PO 81 mg QDAY [facility] Administration Atorvastatin Calcium 40 mg 02/20/19 22:00 02/24/19 22:28 Lipitor PO 40 mg QHS ERNIE Administration Carvedilol 6.25 mg 02/20/19 22:00 02/24/19 22:36 Coreg PO Not Given BID [facility] Enoxaparin Sodium 40 mg 02/21/19 22:00 02/24/19 22:28 Enoxaparin SUB-Q 40 mg QDAY@2200 [facility] Administration Furosemide 40 mg 02/24/19 06:00 02/25/19 07:20 Lasix PO Not Given DAILY@0600 [facility] Sodium Chloride 500 mls @ 50 mls/hr 02/25/19 05:00 Nacl 0.9% 500 Ml IV 02/25/19 14:59 DIRECT [facility] Lisinopril 5 mg 02/21/19 10:00 02/24/19 10:07 Zestril PO Not Given QDAY [facility] Ondansetron HCl 4 mg 02/20/19 03:07 Zofran IV Q8H PRN Nausea And Vomiting Sodium Chloride 10 ml 02/20/19 10:00 02/24/19 22:28 Sodium Chloride Flush Syringe 10 Ml IV 10 ml BID ERNIE Administration Sodium Chloride 10 ml 02/20/19 03:07 Sodium Chloride Flush Syringe 10 Ml IV PRN PRN LINE FLUSH Spironolactone 12.5 mg 02/22/19 12:00 02/25/19 10:39 Aldactone PO Not Given QDAY [facility]
[2019-02-25] MEDS: ASPIRIN 81 MG TAB CHEW PO SCH (11:49)
[2019-02-25] MEDS: carvediloL 6.25 MG TAB PO SCH (11:50)
[2019-02-25] MEDS: LISINOPRIL 5 MG TAB PO SCH (11:51)
[2019-02-25] MEDS ORDERED: ceFAZolin/Water 2 GM/20 ML 2 GM/20 ML SYRINGE IV ONE (13:02)
[2019-02-25] MEDS ORDERED: SODIUM CHLORIDE IRRI 1000 ML 1,000 ML, .VANCOMYCIN VIAL 1,000 MG IR ONE (13:02)
[2019-02-25] MEDS ORDERED: SODIUM CHLORIDE 0.9% 500 ML 500 ML ONE (13:03)
--- NOTE | 2019-02-25 13:16 | Anesthesia Consultation ---
Anesthesia Consult and Med Hx Date of service: 02/25/19 - Airway Anesthetic Teeth Evaluation: Good ROM Head & Neck: Adequate Mental/Hyoid Distance: Adequate Mallampati Class: Class II Intubation Access Assessment: Probably Good - Pre-Operative Health Status ASA Pre-Surgery Classification: ASA4 Proposed Anesthetic Plan: MAC - Pulmonary Hx Respiratory Symptoms: Yes (bronchitis 2 weeks ago) - Cardiovascular System Hx Coronary Artery Disease: No (non ischemic cardiomyopathy? EF 10%) Hx Heart Attack/AMI: No (acute heart failure presumably viral ethiology) Hx Cardia Arrhythmia: Yes (h/o VTach)
[2019-02-25] MEDS ORDERED: SODIUM CHLORIDE 0.9% 1000 ML 1,000 ML ONE (13:17)
--- NOTE | 2019-02-25 13:18 | Anesthesia Day of Surgery ---
Anesthesia Day of Surgery - Day of Surgery Patient Examined: Yes Patient H&P Reviewed: Yes Patient is NPO: Yes Beta Blockers: Yes
[2019-02-25] MEDS: SODIUM CHLORIDE 0.9% 1000 ML 1,000 ML IV SCH ×2 (13:24→14:40)
[2019-02-25] MEDS ORDERED: DEXMEDETOMIDINE 200 MCG/2 ML VIAL IV ONE (13:28)
[2019-02-25] MEDS ORDERED: KETAMINE/STERILE WATER 50 MG/ML SYRINGE ONE (13:29)
[2019-02-25] MEDS ORDERED: MIDAZOLAM 2 MG/2 ML INJ ONE (13:29)
[2019-02-25] MEDS ORDERED: PROPOFOL 200 MG/20 ML VIAL IV ONE (14:14)
[2019-02-25] MEDS: BUPIVACAINE/PF (0.5%) 5 MG/1 ML 30 ML VIAL INFILTRATI ONE ×2 (14:30→15:16)
[2019-02-25] MEDS: LIDOCAINE (1%) 10 MG/1 ML VIAL 20 ML MDV ONE ×2 (14:31→15:16)
[2019-02-25] MEDS: SODIUM CHLORIDE IRRI 500 ML 500 ML IR ONE ×2 (14:40→15:10)
[2019-02-25] MEDS ORDERED: .VANCOMYCIN VIAL 1,000 MG in SODIUM CHLORIDE IRRI 1000 ML 1,000 ML IRRIGATION ONE (16:10)
[2019-02-25] MEDS ORDERED: HYDROcodone/ACETAMINOPHEN 5-325 MG TAB PO PRN (16:48)
[2019-02-25] MEDS ORDERED: GLYCOPYRROLATE 0.4 MG/2 ML INJ ONE (17:00)
[2019-02-25] MEDS: ceFAZolin/NS 1 GM/50 ML 1 GM/50 ML BAG IV SCH (18:48)
--- NOTE | 2019-02-25 19:54 | XRay Report ---
CHEST 1 VIEW INDICATION / CLINICAL INFORMATION: Pacemaker Postop. COMPARISON: 02/22/2019 FINDINGS: SUPPORT DEVICES: AICD placed from the left. HEART / MEDIASTINUM: No significant abnormality. LUNGS / PLEURA: No significant pulmonary or pleural abnormality.. No pneumothorax. ADDITIONAL FINDINGS: No significant additional findings. IMPRESSION: 1. No acute findings. Signer Name: Christopher Hill MD Signed: 02/25/2019 7:50 PM Workstation Name: [id number]
--- NOTE | 2019-02-25 20:01 | Post Anesthesia Evaluation ---
- Post Anesthesia Evaluation Patient Participated: Yes Airway Patent: Yes Stable Respiratory Function: Yes Nausea/Vomiting: No Temp > 96.8F: Yes Pain Manageable: Yes Adequeate Hydration: Yes Anesthesia Complications: No Block Receding Appropriately: Not Applicable Patient on Ventilator: No
[2019-02-25] MEDS: ENOXAPARIN 40 MG/0.4 ML INJ SUB-Q SCH (21:13)
[2019-02-26] MEDS: ceFAZolin/NS 1 GM/50 ML 1 GM/50 ML BAG IV SCH (01:35)
[2019-02-26] MEDS: FUROSEMIDE 40 MG TAB PO SCH (06:28)
[2019-02-26] MEDS: SPIRONOLACTONE 25 MG TAB PO SCH (10:24)
[2019-02-26] MEDS: ASPIRIN 81 MG TAB CHEW PO SCH (10:24)
[2019-02-26] MEDS: LISINOPRIL 5 MG TAB PO SCH (10:25)
[2019-02-26 10:29] VITALS: BP 117/70
--- NOTE | 2019-02-26 10:32 | Progress Note ---
Assessment and Plan S/p AICD implantation yesterday. Device interrogation this AM showed normal device function. Post procedure CXR with NAF. Currently stable cardiac status. Pt may discharge from cardiology standpoint on present cardiac regimen. Follow up in our [place] office device clinic for post-op incision check on 03/06/2019 @ 10:30AM. Follow up in our [place] office with Dr. Alford on 03/03/2019 @ 9:00AM. The patient has been seen in conjunction with Dr. Gifford who agrees with the assessment and plan of care. - Patient Problems (1) Ventricular tachycardia Current Visit: Yes Status: Acute (2) Acute HFrEF (heart failure with reduced ejection fraction) Current Visit: Yes Status: Acute (3) Nonischemic cardiomyopathy Current Visit: Yes Status: Acute (4) Chest pain Current Visit: Yes Status: Resolved (5) Nonobstructive atherosclerosis of coronary artery Current Visit: Yes Status: Chronic (6) Hyperlipidemia Current Visit: Yes Status: Chronic (7) Automatic implantable cardioverter-defibrillator in situ Current Visit: Yes Status: Chronic Subjective Date of service: 02/26/19 Principal diagnosis: HF; CMP; VT Interval history: pt resting in bed, no current complaints. tele reviewed - in SR, no NSVT since Sunday. s/p AICD implantation yesterday. Objective Last Vital Signs Temp 98.1 F 02/26/19 09:05 Pulse 70 02/26/19 10:25 Resp 18 02/26/19 09:05 BP 117/70 02/26/19 10:25 Pulse Ox 97 02/26/19 12:30 - Physical Examination General: No Apparent Distress HEENT: Positive: PERRL, Normocephaly, Mucus Membranes Moist Neck: Positive: neck supple, trachea midline Cardiac: Positive: Reg Rate and Rhythm, S1/S2 Lungs: Positive: Decreased Breath Sounds Neuro: Positive: Grossly Intact Abdomen: Positive: Unremarkable. Negative: Tender /Rectal: Other (deferred) Skin: Positive: Clear. Negative: Rash Incision: Incision Site (left pectoralis PPM implantation site pressure dressing removed, site covered with telfa and tegaderm dressing, site c/d/i, no bleeding or hematoma noted) Musculoskeletal: No Pain Extremities: Present: normal. Absent: edema - Imaging and Cardiology EKG: report reviewed, image reviewed Echo: report reviewed ( EF 10-15%, mild LVH, RV mildly dilated, grade 2 diastolic dysfunction, mild to mod MR, mild TR, left pleural effusion present. ) Cardiac cath: report reviewed (mild nonobstructive CAD, EF 10-15%, elevated LVEDP. ) - Telemetry EKG Rhythm: Sinus Rhythm - EKG Sinus rhythms and dysrhythmias: sinus rhythm Ventricular dysrhythmias: ventricular premature com, non-sustained ventricular
--- NOTE | 2019-02-26 11:32 | Discharge Summary ---
Providers - Providers Date of Admission: 02/20/19 01:33 Attending physician: NITA GIBSON MD 02/19/19 23:37 Consult to Physician [CONS] Routine Comment: Dr. Walsh spoke with Dr. Bernard @ [phone] Consulting Provider: AMANDA BERNARD Physician Instructions: Reason For Exam: V-Tach 02/20/19 12:22 Consult to Cardiac Rehabilitation [CONS] Routine Reason For Exam: Cardiac Rehab Evaluation Hospitalization Condition: Serious Hospital course: 53-year-old man who was admitted to the hospital for chest pain palpitations. Found to have v Tach. V. 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 DVT prophylaxis Lovenox Disposition: TO HOME OR SELFCARE Time spent for discharge: 33 mins Core Measure Documentation - Palliative Care Palliative Care/ Comfort Measures: Not Applicable - Core Measures Any of the following diagnoses?: heart failure - Heart Failure Discharge Requirements ASHOK/ARB for LVSD if EF <40%: Yes Beta loly at discharge: Yes Exam - Constitutional Vitals: Temp Pulse Resp BP Pulse Ox 98.1 F 70 18 117/70 96 02/26/19 09:05 02/26/19 10:25 02/26/19 09:05 02/26/19 10:25 02/26/19 03:30 General appearance: Present: no acute distress, well-nourished - EENT Eyes: Present: PERRL ENT: hearing intact, clear oral mucosa - Neck Neck: Present: supple, normal ROM - Respiratory Respiratory effort: normal Respiratory: bilateral: CTA - Cardiovascular Heart Sounds: Present: S1 & S2. Absent: rub, click - Extremities Extremities: pulses symmetrical, No edema Peripheral Pulses: within normal limits - Abdominal General gastrointestinal: Present: soft, non-tender, non-distended, normal bowel sounds Male genitourinary: Present: normal - Integumentary Integumentary: Present: clear, warm, dry - Musculoskeletal Musculoskeletal: gait normal, strength equal bilaterally - Psychiatric Psychiatric: appropriate mood/affect, intact judgment & insight - Neurologic Neurologic: CNII-XII intact, moves all extremities Plan Follow up with: PRIMARY CARE, [Referring] - 3-5 Days Prescriptions: AtorvaSTATin [Lipitor] 40 mg PO QHS #30 tablet Spironolactone [Aldactone] 12.5 mg PO QDAY #90 tablet Aspirin EC [Halfprin EC] 81 mg PO QDAY #90 tablet. Furosemide [Lasix TAB] 40 mg PO DAILY@0600 #90 tablet Metoprolol Xl [Metoprolol SUCCINATE ER TAB] 25 mg PO QDAY #90 tablet HYDROcodone/APAP 5-325 [[place] 5-325 mg TAB] 1 each PO Q6H PRN #14 tablet PRN Reason: Pain, Moderate (4-6) Lisinopril [Zestril TAB] 5 mg PO QDAY #90 tablet
[2019-02-26] MEDS ORDERED: METOPROLOL SUCCINATE XL 25 MG TAB PO SCH (22:00)
--- NOTE | 2019-03-03 19:57 | Electrophysiological Studies ---
EP REPORT PROCEDURE: Single chamber ICD implantation. DESCRIPTION OF PROCEDURE: The patient was brought to the electrophysiology laboratory. The patient was prepped and draped in the usual sterile fashion. Local anesthesia was obtained with lidocaine. Antibiotics were given prior to the procedure for surgical prophylaxis. A 5 cm incision was made over the left deltopectoral groove. Venous access was obtained via axillary vein. The ventricular lead was advanced to the right ventricular apex under fluoroscopy. While observing the diaphragm under fluoroscopy, a 10 volt test was applied to the lead to exclude diaphragmatic pacing. The lead was then sutured to the fascial plane with Ethibond sutures. Using blunt dissection, a pocket was then produced above the pectoral muscle plane. The pocket was irrigated with antibiotic-containing solution. Adequate electrical parameters were confirmed prior to the attachment of the ICD pulse generator. The lead and generator were then inserted into the pocket. Closure was obtained using 2-0, 3-0, and 4-0 Vicryl. The incision was then protected with Steri-Strips, gauze, and clear adhesive dressing. COMPLICATIONS: None. ASSESSMENT: 1. Successful single chamber cardiac defibrillator implantation. Plan: Follow up for incision check in 8 days. PREPROCEDURE DIAGNOSIS: Syncope and monomorphic ventricular tachycardia. POSTPROCEDURE DIAGNOSES: 1. Syncope. 2. Monomorphic ventricular tachycardia. 3. Nonischemic cardiomyopathy, ejection fraction 10%. JOB# [id number] LEILA/DONAVAN
== END 2019-02-26 14:35 | disposition home or self-care (01) | DRG 224 ==
LOC: ED 22:48 → CC1 02-20 01:33 → 4A 02-20 16:48
PROVIDERS: ADMIT Internal Medicine; ATTEND Internal Medicine
PROC: 4A023N7 Measurement of Cardiac Sampling and Pressure, Left Heart, Percutaneous Approach (ICD-10-PCS; principal; 2019-02-20)
PROC: B2111ZZ Fluoroscopy of Multiple Coronary Arteries using Low Osmolar Contrast (ICD-10-PCS; 2019-02-20)
PROC: B2151ZZ Fluoroscopy of Left Heart using Low Osmolar Contrast (ICD-10-PCS; 2019-02-20)
PROC: 4A033R1 Measurement of Arterial Saturation, Peripheral, Percutaneous Approach (ICD-10-PCS; 2019-02-20)
PROC: 5A09357 Assistance with Respiratory Ventilation, Less than 24 Consecutive Hours, Continuous Positive Airway Pressure (ICD-10-PCS; 2019-02-20)
PROC: 0JH608Z Insertion of Defibrillator Generator into Chest Subcutaneous Tissue and Fascia, Open Approach (ICD-10-PCS; 2019-02-25)
PROC: 02HK3KZ Insertion of Defibrillator Lead into Right Ventricle, Percutaneous Approach (ICD-10-PCS; 2019-02-25)
DX: I47.2 Ventricular tachycardia (principal); I50.41 Acute combined systolic (congestive) and diastolic (congestive) heart failure; I42.9 Cardiomyopathy, unspecified; R74.0 Nonspecific elevation of levels of transaminase and lactic acid dehydrogenase [LDH]; I25.10 Atherosclerotic heart disease of native coronary artery without angina pectoris; F40.240 Claustrophobia; E78.5 Hyperlipidemia, unspecified; D72.829 Elevated white blood cell count, unspecified; Z82.49 Family history of ischemic heart disease and other diseases of the circulatory system; Z83.3 Family history of diabetes mellitus
CPT/HCPCS: 33249; 36415; 36600; 71045; 71275; 80048; 80053; 80061; 81001; 82550; 82553; 82803; 82962; 83735; 83880; 84100; 84436; 84443; 84484; 85025; 85027; 85379; 85610; 85730; 93005; 93010; 93306; 93458; 94660; 94760; 96365; 96374; G0378; A9270-GY; C1722; C1777; C1887; C1892; C1894; J0282; J0690; J1644; J1650; J1940; J2060; J2250; J2704; J2930; J3010; J3370; J3475; J3490; J7030; J7040; J7060; Q9967

== ENCOUNTER 2019-06-21 22:43 | Observation (INO) | payer OTHER ==
[2019-06-22 01:13] LABS: Basophils # (Auto) 0.1 K/mm3 (0.0-0.1); Basophils % (Auto) 0.9 % (0.0-1.8); Eosinophils # (Auto) 0.2 K/mm3 (0.0-0.4); Eosinophils % (Auto) 3.4 % (0.0-4.3); Hematocrit 39.4 % (35.5-45.6); Hemoglobin 13.5 gm/dl (11.8-15.2); Lymphocytes # (Auto) 1.3 K/mm3 (1.2-5.4); Lymphocytes % (Auto) 21.5 % (13.4-35.0); Mean Corpuscular HGB Conc 34 % (32-34); Mean Corpuscular Volume 88 fl (84-94); Monocytes # (Auto) 0.9 K/mm3 (0.0-0.8); Monocytes % (Auto) 14.8 % (0.0-7.3); Platelet Count 176 K/mm3 (140-440); Red Blood Count 4.46 M/mm3 (3.65-5.03); Red Cell Distribution Width 13.3 % (13.2-15.2)
[2019-06-22 01:36] LABS: Alanine Aminotransferase 23 units/L (7-56); Albumin 4.1 g/dL (3.9-5); BUN/Creatinine Ratio 16; Blood Urea Nitrogen 18 mg/dL (9-20); Calcium 9.1 mg/dL (8.4-10.2); Hemolysis Index 34
--- NOTE | 2019-06-22 07:28 | Emergency Department Report ---
ED General Adult HPI - General Chief complaint: Dizziness Stated complaint: DIZZINESS Time Seen by Provider: 06/22/19 07:05 Source: patient Mode of arrival: Ambulatory Limitations: No Limitations - History of Present Illness Initial comments: Patient presents to the emergency department with a chief complaint of a syncopal episode. Patient states around 10:15 PM last night after eating dinner he began to feel lightheaded and confused and passed out. Patient has a history of arrhythmias and had a defibrillator placed in February 2019 for the arrpreeti ias. Patient has no complaints currently. -: Sudden Severity scale (0 -10): 0 Consistency: now resolved Improves with: none Worsens with: none Associated Symptoms: denies other symptoms Treatments Prior to Arrival: none - Related Data Previous Rx's Medication Instructions Recorded Last Taken Type Furosemide [Lasix TAB] 40 mg PO DAILY@0600 #90 tablet 02/26/19 Unknown Rx HYDROcodone/APAP 5-325 [[place] 1 each PO Q6H PRN #14 tablet 02/26/19 Unknown Rx 5-325 mg TAB] Metoprolol Xl [Metoprolol 25 mg PO QDAY #90 tablet 02/26/19 Unknown Rx SUCCINATE ER TAB] Spironolactone [Aldactone] 12.5 mg PO QDAY #90 tablet 02/26/19 Unknown Rx lisinopriL [Zestril TAB] 5 mg PO QDAY #90 tablet 02/26/19 Unknown Rx Allergies Allergy/AdvReac Type Severity Reaction Status Date / Time No Known Allergies Allergy Unverified 02/19/19 22:57 ED Review of Systems ROS: Stated complaint: DIZZINESS Other details as noted in HPI Comment: All other systems reviewed and negative Constitutional: denies: chills, fever Eyes: denies: eye pain, eye discharge, vision change ENT: denies: ear pain, throat pain Respiratory: denies: cough, shortness of breath, wheezing Cardiovascular: denies: chest pain, palpitations Endocrine: no symptoms reported Gastrointestinal: denies: abdominal pain, nausea, diarrhea Genitourinary: denies: urgency, dysuria Musculoskeletal: denies: back pain, joint swelling, arthralgia Skin: denies: rash, lesions Neurological: denies: headache, weakness, paresthesias Psychiatric: denies: anxiety, depression Hematological/Lymphatic: denies: easy bleeding, easy bruising ED Past Medical Hx - Past Medical History Previous Medical History?: Yes Hx Heart Attack/AMI: Yes (acute heart failure presumably viral ethiology) - Surgical History Past Surgical History?: Yes Additional Surgical History: hernia, defibrilator - Social History Smoking Status: Never Smoker Substance Use Type: None - Medications Home Medications: Home Medications Medication Instructions Recorded Confirmed Last Taken Type Furosemide [Lasix TAB] 40 mg PO DAILY@0600 #90 tablet 02/26/19 06/22/19 Unknown Rx HYDROcodone/APAP 5-325 [[place] 1 each PO Q6H PRN #14 tablet 02/26/19 06/22/19 Unknown Rx 5-325 mg TAB] Metoprolol Xl [Metoprolol 25 mg PO QDAY #90 tablet 02/26/19 06/22/19 Unknown Rx SUCCINATE ER TAB] Spironolactone [Aldactone] 12.5 mg PO QDAY #90 tablet 02/26/19 06/22/19 Unknown Rx lisinopriL [Zestril TAB] 5 mg PO QDAY #90 tablet 02/26/19 06/22/19 Unknown Rx ED Physical Exam - General Limitations: No Limitations General appearance: alert, in no apparent distress - Head Head exam: Present: atraumatic, normocephalic - Eye Eye exam: Present: normal appearance, PERRL, EOMI - ENT ENT exam: Present: mucous membranes moist - Neck Neck exam: Present: normal inspection - Respiratory Respiratory exam: Present: normal lung sounds bilaterally. Absent: respiratory distress - Cardiovascular Cardiovascular Exam: Present: regular rate, normal rhythm. Absent: systolic murmur, diastolic murmur, rubs, gallop - GI/Abdominal GI/Abdominal exam: Present: soft, normal bowel sounds. Absent: distended, te nderness - Rectal Rectal exam: Present: deferred - Extremities Exam Extremities exam: Present: normal inspection - Back Exam Back exam: Present: normal inspection - Neurological Exam Neurological exam: Present: alert, oriented X3, CN II-XII intact. Absent: motor sensory deficit - Psychiatric Psychiatric exam: Present: normal affect, normal mood - Skin Skin exam: Present: warm, dry, intact, normal color. Absent: rash ED Course Vital Signs 06/21/19 06/22/19 06/22/19 22:47 07:52 10:55 Temperature 97.7 F 98.6 F Pulse Rate 58 L 88 48 L Respiratory 18 18 16 Rate Blood Pressure 144/85 Blood Pressure 122/74 122/76 [Right] O2 Sat by Pulse 100 100 95 Oximetry 06/22/19 11:13 Temperature Pulse Rate 48 L Respiratory 16 Rate Blood Pressure Blood Pressure 122/76 [Right] O2 Sat by Pulse 96 Oximetry ED Medical Decision Making - Lab Data Result diagrams: 06/22/19 00:58 06/22/19 00:58 Lab Results 06/22/19 06/22/19 06/22/19 Range/Units 00:58 00:58 07:29 WBC 5.9 (4.5-11.0) K/mm3 RBC 4.46 (3.65-5.03) M/mm3 Hgb 13.5 (11.8-15.2) gm/dl Hct 39.4 (35.5-45.6) % MCV 88 (84-94) fl MCH 30 (28-32) pg MCHC 34 (32-34) % RDW 13.3 (13.2-15.2) % Plt Count 176 (140-440) K/mm3 Lymph % (Auto) 21.5 (13.4-35.0) % [place] % (Auto) 14.8 H (0.0-7.3) % Eos % (Auto) 3.4 (0.0-4.3) % Baso % (Auto) 0.9 (0.0-1.8) % Lymph # 1.3 (1.2-5.4) K/mm3 [place] # 0.9 H (0.0-0.8) K/mm3 Eos # 0.2 (0.0-0.4) K/mm3 Baso # 0.1 (0.0-0.1) K/mm3 Seg Neutrophils % 59.4 (40.0-70.0) % Seg Neutrophils # 3.5 (1.8-7.7) K/mm3 Sodium 139 (137-145) mmol/L Potassium 4.8 (3.6-5.0) mmol/L Chloride 102.7 (98-107) mmol/L Carbon Dioxide 23 (22-30) mmol/L Anion Gap 18 mmol/L BUN 18 (9-20) mg/dL Creatinine 1.1 (0.8-1.5) mg/dL Estimated GFR > 60 ml/min BUN/Creatinine Ratio 16 % Glucose 104 H (75-100) mg/dL Calcium 9.1 (8.4-10.2) mg/dL Total Bilirubin 0.20 (0.1-1.2) mg/dL AST 31 (5-40) units/L ALT 23 (7-56) units/L Alkaline Phosphatase 86 (35-129) units/L Troponin T 0.019 (0.00-0.029) ng/mL NT-Pro-B Natriuret Pep 1155 H (0-900) pg/mL Total Protein 7.1 (6.3-8.2) g/dL Albumin 4.1 (3.9-5) g/dL Albumin/Globulin Ratio 1.4 % /12/03 Range/Units 09:45 WBC (4.5-11.0) K/mm3 RBC (3.65-5.03) M/mm3 Hgb (11.8-15.2) gm/dl Hct (35.5-45.6) % MCV (84-94) fl MCH (28-32) pg MCHC (32-34) % RDW (13.2-15.2) % Plt Count (140-440) K/mm3 Lymph % (Auto) (13.4-35.0) % [place] % (Auto) (0.0-7.3) % Eos % (Auto) (0.0-4.3) % Baso % (Auto) (0.0-1.8) % Lymph # (1.2-5.4) K/mm3 [place] # (0.0-0.8) K/mm3 Eos # (0.0-0.4) K/mm3 Baso # (0.0-0.1) K/mm3 Seg Neutrophils % (40.0-70.0) % Seg Neutrophils # (1.8-7.7) K/mm3 Sodium (137-145) mmol/L Potassium (3.6-5.0) mmol/L Chloride (98-107) mmol/L Carbon Dioxide (22-30) mmol/L Anion Gap mmol/L BUN (9-20) mg/dL Creatinine (0.8-1.5) mg/dL Estimated GFR ml/min BUN/Creatinine Ratio % Glucose (75-100) mg/dL Calcium (8.4-10.2) mg/dL Total Bilirubin (0.1-1.2) mg/dL AST (5-40) units/L ALT (7-56) units/L Alkaline Phosphatase (35-129) units/L Troponin T 0.020 (0.00-0.029) ng/mL NT-Pro-B Natriuret Pep (0-900) pg/mL Total Protein (6.3-8.2) g/dL Albumin (3.9-5) g/dL Albumin/Globulin Ratio % - EKG Data -: EKG Interpreted by Me EKG shows normal: sinus rhythm Rate: bradycardia - Radiology Data Radiology results: report reviewed - Medical Decision Making Contacted [employer] and the hr representative investigated whether the patient had an arrhythmia the prior evening but upon reviewing his records it was discovered that his defibrillator last signal was April to At this time was decided that a tech will come out to interrogate the defibrillator Meanwhile Dr. King(cardiology), came to the bedside and saw the patient and asked that he be admitted to the hospital under observation status At this time is discovered that the patient had [facility] Spoke to Dr. Rios at [place] and was given approval for the patient to stay at 12:11 PM Patient updated on plan of care and agrees with plan of care. Critical care attestation.: If time is entered above; I have spent that time in minutes in the direct care of this critically ill patient, excluding procedure time. ED Disposition Clinical Impression: Syncope, Bradycardia Disposition: 09 OP ADMIT IP TO THIS HOSP Is pt being admited?: Yes Does the pt Need Aspirin: Yes Condition: Fair Instructions: Syncope (ED) Referrals: PRIMARY CARE, [Primary Care Provider] - 3-5 Days
--- NOTE | 2019-06-22 08:25 | Cat Scan Report ---
CT HEAD/BRAIN WO CON INDICATION / CLINICAL INFORMATION: Syncope last night. TECHNIQUE: All CT scans at this location are performed using CT dose reduction for ALARA by means of automated e xposure control. COMPARISON: None available. FINDINGS: The ventricular system is normal in size and configuration. No focal lesion or mass effect is seen. T here is no evidence of intracranial hemorrhage or major vessel occlusion. The calvarium is intact. The visualized paranasal sinuses and mastoid air cells are clear. IMPRESSION: No acute abnormality. Signer Name: Florian Barry MD Signed: 06/22/2019 8:20 AM Workstation Name: [id number]
--- NOTE | 2019-06-22 10:39 | XRay Report ---
CHEST 1 VIEW 10:16 AM INDICATION / CLINICAL INFORMATION: Syncope. Dizziness one hour ago. COMPARISON: 02/25/19. FINDINGS: SUPPORT DEVICES: The position of the single lead left subclavian ICD has not changed. HEART / MEDIASTINUM: The heart size and pulmonary vasculature are normal. The aorta is normal in asaf farzaneh. LUNGS / PLEURA: No significant pulmonary or pleural abnormality. No pneumothorax. ADDITIONAL FINDINGS: No significant additional findings. IMPRESSION: No acute abnormality or significant change. Signer Name: Florian Barry MD Signed: 06/22/2019 10:34 AM Workstation Name: [id number]
--- NOTE | 2019-06-22 12:13 | History and Physical Report ---
History of Present Illness Chief complaint: I got dizzy and passed out History of present illness: 54 YO Male with HTN, DM,MS, Cardiomyopathy (EF 10%)W/P ICD placement presents to ED for evaluation. Patient states that he experienced a sudden loss of consciousness around 2215 hrs. Patient states that shortly after eating dinner he experienced sudden onset of lightheadedness and subsequently lost consciousness. Patient also reports that he experienced recurrent symptoms 1 hour prior to presentation to the hospital and subsequently presented to the hospital for care. Patient transported to [facility] via private vehicle for evaluation and further care. Patient seen and evaluated in the emergency department. Lab and imaging studies reviewed. Upon review of EKG the patient was found to have cardiac arrhythmia not otherwise specified. Patient placed in observation status and admitted to telemetry due to high risk for cardiac decompensation. Cardiology consult placed in the ED. Patient denies fever, chills, chest pain, palpitation, productive cough, bright red blood per rectum, unilateral leg swelling, prolonged travel/immobility, individual/family history of DVT/PE/bleeding/blood clotting disorder, family history of sudden cardiac . Prior admission on 02/20/2019 reviewed. All listed medication has been reconciled at the time of admission. Medications and Allergies Allergies Allergy/AdvReac Type Severity Reaction Status Date / Time No Known Allergies Allergy Unverified 02/19/19 22:57 Home Medications Medication Instructions Recorded Confirmed Last Taken Type Furosemide [Lasix TAB] 40 mg PO DAILY@0600 #90 tablet 02/26/19 06/22/19 Unknown Rx HYDROcodone/APAP 5-325 [[place] 1 each PO Q6H PRN #14 tablet 02/26/19 06/22/19 Unknown Rx 5-325 mg TAB] Metoprolol Xl [Metoprolol 25 mg PO QDAY #90 tablet 02/26/19 06/22/19 Unknown Rx SUCCINATE ER TAB] Spironolactone [Aldactone] 12.5 mg PO QDAY #90 tablet 02/26/19 06/22/19 Unknown Rx lisinopriL [Zestril TAB] 5 mg PO QDAY #90 tablet 02/26/19 06/22/19 Unknown Rx Review of Systems Constitutional: weakness, no weight loss, no weight gain, no fever, no chills Ears, nose, mouth and throat: no ear pain, no ear discharge, no nose pain, no nasal congestion Cardiovascular: syncope, lightheadedness, no chest pain, no orthopnea, no palpitations Respiratory: no cough, no cough with sputum, no excessive sputum Gastrointestinal: no abdominal pain, no nausea, no vomiting, no diarrhea, no constipation Genitourinary Male: no hematuria, no flank pain, no discharge, no urinary freq uency, no urinary hesitancy Rectal: no pain, no incontinence, no bleeding Musculoskeletal: no neck stiffness, no neck pain, no arm numbness/tingling, no low back pain, no shooting leg pain Integumentary: no rash, no pruritis, no redness, no sores, no wounds Neurological: syncope, no transient paralysis, no paralysis, no weakness, no parathesias, no numbness, no seizures Psychiatric: no memory loss, no change in sleep habits, no sleep disturbances, no change in appetite, no suicidal ideation Endocrine: no cold intolerance, no polyphagia, no excessive thirst, no nocturia, no excessive sweating Hematologic/Lymphatic: no easy bruising, no easy bleeding, no lymphadenopathy Allergic/Immunologic: no urticaria, no allergic rhinitis, no persistent infections, no anaphylaxis, no angioedema Exam - Constitutional Vitals: Temp Pulse Resp BP Pulse Ox 98.6 F 48 L 16 122/76 96 06/22/19 07:52 06/22/19 11:13 06/22/19 11:13 06/22/19 11:13 06/22/19 11:13 General appearance: Present: mild distress - EENT Eyes: Present: PERRL ENT: hearing intact, clear oral mucosa - Neck Neck: Present: supple, normal ROM - Respiratory Respiratory effort: normal Respiratory: bilateral: CTA - Cardiovascular Heart Sounds: Present: S1 & S2. Absent: rub, click - Extremities Extremities: pulses symmetrical, No edema Peripheral Pulses: within normal limits - Abdominal General gastrointestinal: Present: soft, non-tender, non-distended, normal bowel sounds Male genitourinary: Present: normal - Integumentary Integumentary: Present: clear, warm, dry - Musculoskeletal Musculoskeletal: gait normal, strength equal bilaterally - Psychiatric Psychiatric: appropriate mood/affect, intact judgment & insight - Neurologic Neurologic: CNII-XII intact, moves all extremities Results - Labs CBC & Chem 7: 06/22/19 00:58 06/22/19 00:58 Labs: Abnormal lab results 06/22/19 06/22/19 06/22/19 Range/Units 00:58 00:58 07:29 [place] % (Auto) 14.8 H (0.0-7.3) % [place] # 0.9 H (0.0-0.8) K/mm3 Glucose 104 H (75-100) mg/dL NT-Pro-B Natriuret Pep 1155 H (0-900) pg/mL Assessment and Plan - Patient Problems (1) Cardiac arrhythmia, unspecified Current Visit: Yes Status: Acute Qualifiers: Atrial flutter type: unspecified Plan to address problem: Cardiology consult placed in ED, patient pending ICD interrogation, admit to telemetry, supportive care. Echo from February 2019 reviewed. (2) Syncope Current Visit: Yes Status: Acute Plan to address problem: Neuro check, seizure precautions, fall precautions, supportive care, IV fluid resuscitation therapy, admit to telemetry. (3) Nonischemic cardiomyopathy Current Visit: No Status: Acute Plan to address problem: Chronic, echo reviewed, ejection fraction of 10% on echocardiogram conducted No 2018. Continue prehospital medication, supportive care, further testing as per cardiology team. (4) DVT prophylaxis Current Visit: Yes Status: Acute Plan to address problem: SCD to bilateral lower extremities while in bed, patient is ambulatory.
[2019-06-22] MEDS ORDERED: ACETAMINOPHEN 325 MG TAB PO PRN (12:15)
[2019-06-22] MEDS ORDERED: ALBUTEROL 2.5 MG/3 ML NEBU IH PRN (12:15)
[2019-06-22] MEDS ORDERED: ONDANSETRON 4 MG/2 ML INJ IV PRN (12:15)
[2019-06-22] MEDS ORDERED: ASPIRIN 81 MG TAB CHEW PO ONE (12:18)
--- NOTE | 2019-06-22 13:49 | Consultation ---
CARDIOLOGY CONSULTATION REASON FOR CONSULTATION: Advice regarding palpitations. HISTORY OF PRESENT ILLNESS: The patient is a pleasant 54-year-old -Vietnamese gentleman with a known history of severe nonischemic cardiomyopathy, status post ICD placement. He was at dinner last night with his son, was confused for approximately 30 seconds and thus he was brought into the Emergency Room. I reviewed the ER records and spoken with Dr. Whipple. No evidence of arrhythmia. He denies any chest pain, is seen in room. No chest pain, shortness of breath, syncope, presyncope since this event. No abdominal pain, hematochezia, melena, hemoptysis or hematemesis. The patient's primary is with [facility]. States he feels compliant with medications. 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 PAST MEDICAL HISTORY: Hyperlipidemia. REVIEW OF SYSTEMS: As per HPI. MEDICATIONS: Inpatient and outpatient medications reviewed. ALLERGIES: No known drug, food, or environmental allergies. PAST SURGICAL HISTORY: Hernia repair. SOCIAL HISTORY: Nonsmoker, nondrinker. PHYSICAL EXAMINATION: VITAL SIGNS: Blood pressure is 140/80. He is afebrile. Tele reveals sinus rhythm in the 50s. HEENT: Sclerae anicteric. PERRLA. NECK: Supple. No mass or JVD. CHEST: Clear to auscultation bilaterally. Good air movement. CARDIOVASCULAR: Regular rhythm, S1, S2. ABDOMEN: Soft, nontender, nondistended. Normoactive bowel sounds in 4 quadrants. No mass or bruits. EXTREMITIES: No cyanosis, clubbing, edema. Good peripheral pulses. SKIN: Intact. No rashes. LABORATORY DATA: Tele reveals sinus rhythm. His troponin is negative. BNP is minimally elevated. This is likely an unremarkable finding. CBC unremarkable. Creatinine normal. His ECG reveals sinus bradycardia, heart rate of 59, nonspecific T-wave changes. No acute change. ASSESSMENT AND PLAN: In summary, the patient is a 54-year-old -[place] male. 1. The patient last night had an episode of acute confusion of unclear etiology. Device company is coming to check his device. No arrhythmias noted on documentation in the Emergency Room. He is currently in sinus rhythm and feeling back to normal. 2. History of a severe dilated nonischemic cardiomyopathy. Sees [facility]. At this point, continue metoprolol, ASHOK inhibitor, Aldactone, Lasix. He does seem euvolemic at this point, we will monitor overnight. No need for further testing at this point. My findings and plan of care discussed with the patient and his son. All questions and concerns were addressed. Discussed with Dr. Whipple in the Emergency Room as well. We will follow along. JOB# [id number] SBM/NTS
[2019-06-22] MEDS: FUROSEMIDE 20 MG/2 ML INJ IV SCH (18:28)
[2019-06-23] MEDS: FUROSEMIDE 20 MG/2 ML INJ IV SCH ×2 (06:14→22:05)
[2019-06-23 08:27] LABS: BUN/Creatinine Ratio 13; Blood Urea Nitrogen 13 mg/dL (9-20); Calcium 9.1 mg/dL (8.4-10.2); Hemolysis Index 17
--- NOTE | 2019-06-23 09:26 | Progress Note ---
Assessment and Plan Assessment and plan: Cardiac arrhythmia. Await findings from ICD interrogation. Cardiology consultation pending. Continue telemetry monitoring. Syncope. Etiology secondary to above. Nonischemic cardiomyopathy. Patient reportedly with a EF of 10% with AICD. Coronary artery disease. Diabetes mellitus type 2. Continue Accu-Cheks and sliding scale insulin. Hypertension. Continue antihypertensive medications. History Interval history: No new issues overnight. Hospitalist Physical - Constitutional Vitals: Temp Pulse Resp BP Pulse Ox 98.8 F 67 18 101/69 100 06/23/19 08:17 06/23/19 08:17 06/23/19 08:17 06/23/19 08:17 06/23/19 08:17 General appearance: Present: no acute distress - EENT Eyes: Present: PERRL, EOM intact ENT: hearing intact, clear oral mucosa, dentition normal - Neck Neck: Present: supple, normal ROM - Respiratory Respiratory effort: normal Respiratory: bilateral: CTA - Cardiovascular Rhythm: regular Heart Sounds: Present: S1 & S2. Absent: gallop, rub - Extremities Extremities: no ischemia, No edema, Full ROM - Abdominal General gastrointestinal: soft, non-tender, non-distended, normal bowel sounds - Integumentary Integumentary: Present: clear, warm, dry - Neurologic Neurologic: CNII-XII intact, moves all extremities Results - Labs CBC & Chem 7: 06/22/19 00:58 06/23/19 06:51 Labs: Laboratory Last Values WBC 5.9 K/mm3 (4.5-11.0) 06/22/19 00:58 RBC 4.46 M/mm3 (3.65-5.03) 06/22/19 00:58 Hgb 13.5 gm/dl (11.8-15.2) 06/22/19 00:58 Hct 39.4 % (35.5-45.6) 06/22/19 00:58 MCV 88 fl (84-94) 06/22/19 00:58 MCH 30 pg (28-32) 06/22/19 00:58 MCHC 34 % (32-34) 06/22/19 00:58 RDW 13.3 % (13.2-15.2) 06/22/19 00:58 Plt Count 176 K/mm3 (140-440) 06/22/19 00:58 Lymph % (Auto) 21.5 % (13.4-35.0) 06/22/19 00:58 [place] % (Auto) 14.8 % (0.0-7.3) H 06/22/19 00:58 Eos % (Auto) 3.4 % (0.0-4.3) 06/22/19 00:58 Baso % (Auto) 0.9 % (0.0-1.8) 06/22/19 00:58 Lymph # 1.3 K/mm3 (1.2-5.4) 06/22/19 00:58 [place] # 0.9 K/mm3 (0.0-0.8) H 06/22/19 00:58 Eos # 0.2 K/mm3 (0.0-0.4) 06/22/19 00:58 Baso # 0.1 K/mm3 (0.0-0.1) 06/22/19 00:58 Seg Neutrophils % 59.4 % (40.0-70.0) 06/22/19 00:58 Seg Neutrophils # 3.5 K/mm3 (1.8-7.7) 06/22/19 00:58 Sodium 135 mmol/L (137-145) L 06/23/19 06:51 Potassium 4.9 mmol/L (3.6-5.0) 06/23/19 06:51 Chloride 102.4 mmol/L (98-107) 06/23/19 06:51 Carbon Dioxide 17 mmol/L (22-30) L 06/23/19 06:51 Anion Gap 21 mmol/L 06/23/19 06:51 BUN 13 mg/dL (9-20) 06/23/19 06:51 Creatinine 1.0 mg/dL (0.8-1.5) 06/23/19 06:51 Estimated GFR > 60 ml/min 06/23/19 06:51 BUN/Creatinine Ratio 13 % 06/23/19 06:51 Glucose 118 mg/dL (75-100) H 06/23/19 06:51 Calcium 9.1 mg/dL (8.4-10.2) 06/23/19 06:51 Total Bilirubin 0.20 mg/dL (0.1-1.2) 06/22/19 00:58 AST 31 units/L (5-40) 06/22/19 00:58 ALT 23 units/L (7-56) 06/22/19 00:58 Alkaline Phosphatase 86 units/L (35-129) 06/22/19 00:58 Troponin T 0.020 ng/mL (0.00-0.029) 06/22/19 09:45 NT-Pro-B Natriuret Pep 1155 pg/mL (0-900) H 06/22/19 07:29 Total Protein 7.1 g/dL (6.3-8.2) 06/22/19 00:58 Albumin 4.1 g/dL (3.9-5) 06/22/19 00:58 Albumin/Globulin Ratio 1.4 % 06/22/19 00:58 Active Medications - Current Medications Current Medications: Generic Name Dose Route Start Last Admin Trade Name Freq PRN Reason Stop Dose Admin Acetaminophen 650 mg 06/22/19 12:15 Tylenol PO Q4H PRN Pain MILD(1-3)/Fever >100.5/FINE Albuterol 2.5 mg 06/22/19 12:15 Proventil IH Q4HRT PRN Shortness Of Breath Furosemide 20 mg 06/22/19 18:00 06/23/19 06:14 Lasix IV 20 mg 0600,1800 ERNIE Administration Lisinopril 5 mg 06/23/19 10:00 Zestril PO QDAY [facility] Metoprolol Succinate 25 mg 06/23/19 10:00 Metoprolol Xl PO QDAY [facility] Ondansetron HCl 4 mg 06/22/19 12:15 Zofran IV Q8H PRN Nausea And Vomiting Sodium Chloride 10 ml 06/22/19 22:00 06/23/19 06:14 Sodium Chloride Flush Syringe 10 Ml IV 10 ml BID ERNIE Administration Sodium Chloride 10 ml 06/22/19 12:15 Sodium Chloride Flush Syringe 10 Ml IV PRN PRN LINE FLUSH Spironolactone 12.5 mg 06/23/19 10:00 Aldactone PO QDAY [facility]
[2019-06-23] MEDS: LISINOPRIL 5 MG TAB PO SCH (09:33)
[2019-06-23] MEDS: SPIRONOLACTONE 25 MG TAB PO SCH (09:33)
[2019-06-23] MEDS: METOPROLOL SUCCINATE XL 25 MG TAB PO SCH (09:34)
--- NOTE | 2019-06-23 11:46 | Progress Note ---
Assessment and Plan AICD interrogation yesterday showed an episode of VF on 06/21/2019 @ 22:23 (which corresponded to episode of altered mental status) which was successfully treated with 1 AICD shock, normal device function. No additional arrhythmias noted since admission. Currently stable cardiac status. Pt may discharge from cardiology standpoint on home cardiac regimen. Recommend pt follow up with his primary cardiology team at [place] within 1 week of discharge. Pt verbalizes understanding. The patient has been seen in conjunction with Dr. Ross who agrees with the assessment and plan of care. - Patient Problems (1) Ventricular fibrillation Current Visit: Yes Status: Acute (2) Altered mental status Current Visit: Yes Status: Resolved (3) History of ventricular tachycardia Current Visit: Yes Status: Acute (4) NSVT Current Visit: Yes Status: Acute (5) Nonischemic cardiomyopathy Current Visit: Yes Status: Acute (6) Automatic implantable cardioverter-defibrillator in situ Current Visit: Yes Status: Chronic (7) Nonobstructive atherosclerosis of coronary artery Current Visit: Yes Status: Chronic (8) Hyperlipidemia Current Visit: Yes Status: Chronic Subjective Date of service: 06/23/19 Principal diagnosis: AMS; VF Interval history: pt resting in bed, no current complaints. in SR on tele. Objective Last Vital Signs Temp 98.8 F 06/23/19 08:17 Pulse 51 L 06/23/19 10:24 Resp 20 06/23/19 10:24 BP 101/69 06/23/19 09:34 Pulse Ox 100 06/23/19 10:24 - Physical Examination General: No Apparent Distress HEENT: Positive: PERRL, Normocephaly, Mucus Membranes Moist Neck: Positive: neck supple, trachea midline Cardiac: Positive: Reg Rate and Rhythm, S1/S2 Lungs: Positive: Decreased Breath Sounds Neuro: Positive: Grossly Intact Abdomen: Negative: Tender Skin: Negative: Rash Musculoskeletal: No Pain Extremities: Absent: edema - Labs and Meds Comprehensive Metabolic Panel 06/23/19 Range/Units 06:51 Sodium 135 L (137-145) mmol/L Potassium 4.9 (3.6-5.0) mmol/L Chloride 102.4 (98-107) mmol/L Carbon Dioxide 17 L (22-30) mmol/L BUN 13 (9-20) mg/dL Creatinine 1.0 (0.8-1.5) mg/dL Glucose 118 H (75-100) mg/dL Calcium 9.1 (8.4-10.2) mg/dL - Imaging and Cardiology EKG: report reviewed, image reviewed - Telemetry EKG Rhythm: Sinus Rhythm
[2019-06-24] MEDS: FUROSEMIDE 20 MG/2 ML INJ IV SCH (06:14)
[2019-06-24 08:40] VITALS: BP 104/63
--- NOTE | 2019-06-24 10:36 | Discharge Summary ---
Providers - Providers Date of Admission: 06/22/19 12:15 Date of discharge: 06/24/19 Attending physician: DWIGHT WILIKNSON 06/23/19 07:36 Consult to Physician [CONS] Routine Comment: Consulting Provider: SHIRLEY PULIDO Physician Instructions: Reason For Exam: cardiac dysrythmia Primary care physician: PATHOLOGY TECHNICIAN Hospitalization Condition: Fair Disposition: DC-01 TO HOME OR SELFCARE Exam - Constitutional Vitals: Temp Pulse Resp BP Pulse Ox 98.0 F 67 18 104/63 99 06/24/19 08:39 06/24/19 08:39 06/24/19 08:39 06/24/19 08:39 06/24/19 08:39 Plan Activity: other Diet: low fat, low cholesterol, low salt (No strenous activity until cleared by cardiology) Plan of Treatment: 1.Follow up with PCP in 1 week. 2.Follow up with Cardiology at [place] in 1 week Follow up with: PRIMARY CAREMD [Primary Care Provider] - 3-5 Days
[2019-06-24] MEDS: SPIRONOLACTONE 25 MG TAB PO SCH (10:48)
[2019-06-24] MEDS: LISINOPRIL 5 MG TAB PO SCH (10:48)
[2019-06-24] MEDS: METOPROLOL SUCCINATE XL 25 MG TAB PO SCH (10:48)
== END 2019-06-24 13:08 | disposition home or self-care (01) ==
LOC: ED 22:43 → 4A 06-22 12:15
PROVIDERS: ADMIT Internal Medicine; ATTEND Internal Medicine
DX: I49.9 Cardiac arrhythmia, unspecified (principal); R55 Syncope and collapse; I47.2 Ventricular tachycardia; I42.8 Other cardiomyopathies; I10 Essential (primary) hypertension; E11.9 Type 2 diabetes mellitus without complications; I25.2 Old myocardial infarction; Z98.890 Other specified postprocedural states
CPT/HCPCS: 36415; 70450; 71045; 80048; 80053; 83880; 84484; 85025; 87116; 93005; 93010; 96374; 96376; 99285; G0378; J1940